=== PATIENT | male | born 1970 | race African-American/Black ===

== ENCOUNTER 2017-01-01 19:42 | Inpatient (IN) | payer OTHER ==
[2017-01-01 20:43] VITALS: BMI 38.0
--- NOTE | 2017-01-01 21:04 | HP ---
CIWA Score - CIWA Score Nausea/Vomitin-Mild Nausea/No Vomiting Muscle Tremors: 3 Anxiety: 4-Mod. Anxious/Guarded Agitation: 4-Moderately Restless Paroxysmal Sweats: No Perspiration Orientation: 0-Oriented Tacttile Disturbances: 0-None Auditory Disturbances: 1-Very Mild Visual Disturbances: 0-None Headache: 0-None Present CIWA-Ar Total Score: 13 Admission ROS BHS - HPI Chief Complaint: WITHDRAWAL SYMPTOMS Allergies/Adverse Reactions: Allergies Allergy/AdvReac Type Severity Reaction Status Date / Time tomato [Tomato] Allergy Mild Verified 03/13/13 20:38 No Known Drug Allergies Allergy Unknown Verified 03/16/13 16:55 PEACHES Allergy Mild Uncoded 03/13/13 20:39 History of Present Illness: 46 Y.O. MAN WITH AN 18 YEAR HISTORY OF ALCOHOL AND DRUG DEPENDENCE IS SEEKING DETOX. HE WAS PREVIOUSLY HERE IN 2012 FOR DETOX AND AT [facility] IN 2013. HE REPORT HAVING A 3 YEAR HISTORY OF SOBRIETY AND RELAPSED WITHIN THE LAST MONTH. Exam Limitations: No Limitations - Ebola screening Have you traveled outside of the country in the last 21 days: No Have you had contact with anyone from an Ebola affected area: No Have you been sick,other than usual withdrawal symptoms: No Do you have a fever: No - Review of Systems Constitutional: Malaise EENT: reports: No Symptoms Reported Respiratory: reports: No Symptoms reported Cardiac: reports: No Symptoms Reported GI: reports: No Symptoms Reported : reports: No Symptoms Reported Musculoskeletal: reports: No Symptoms Reported Integumentary: reports: No Symptoms Reported Neuro: reports: Tremors Endocrine: reports: No Symptoms Reported Hematology: reports: No Symptoms Reported Psychiatric: reports: Orientated x3, Depressed Other Systems: Reviewed and Negative Patient History - Patient Medical History Hx Anemia: No Hx Asthma: No Hx Chronic Obstructive Pulmonary Disease (COPD): No Hx Cancer: No Hx Cardiac Disorders: No Hx Congestive Heart Failure: No Hx Hypertension: No Hx Hypercholesterolemia: No Hx Pacemaker: No HX Cerebrovascular Accident: No Hx Seizures: No Hx Dementia: No Hx Diabetes: No Hx Gastrointestinal Disorders: No Hx Liver Disease: No Hx Genitourinary Disorders: No Hx Sexually Transmitted Disorders: No Hx Renal Disease (ESRD): No Hx Thyroid Disease: No Hx Human Immunodeficiency Virus (HIV): No Hx Hepatitis C: No Hx Depression: Yes Hx Suicide Attempt: No Hx Bipolar Disorder: Yes Hx Schizophrenia: No - Patient Surgical History Past Surgical History: No - PPD History Previous Implant?: Yes Documented Results: Negative w/proof Date: 03/15/13 Results: Negative PPD to be Administered?: Yes - Reproductive History Patient is a Female of Child Bearing Age (11 -55 yrs old): No - Smoking Cessation Smoking history: Former smoker Have you smoked in the past 12 months: No Initiated information on smoking cessation: No - Substance & Tx. History Hx Alcohol Use: Yes Hx Substance Use: Yes Substance Use Type: Alcohol, Cocaine, Marijuana - Substances Abused Alcohol Route: Oral Frequency: Daily Amount used: 2 PINTS OF LIQUOR Age of first use: 12 Date of Last Use: 01/01/17 Cocaine Route: Smoking Frequency: 3-6 times per week Amount used: $100 Age of first use: 18 Date of Last Use: 01/01/17 Marijuana/Hashish Route: Smoking Frequency: Daily Amount used: $40 Age of first use: 12 Date of Last Use: 01/01/17 Family Disease History - Family Disease History Family History: Denies Admission Physical Exam [facility] - Vital Signs Vital Signs: Vital Signs - 24 hr 01/01/17 20:36 Temperature 97.6 F Pulse Rate 77 Respiratory 18 Rate Blood Pressure 153/91 - Physical General Appearance: Yes: No Apparent Distress, Nourished, Appropriately Dressed HEENTM: Yes: Normocephalic, Normal Voice Respiratory: Yes: Chest Non-Tender, Lungs Clear, Normal Breath Sounds Neck: Yes: Trachea in good position Breast: Yes: Breast Exam Deferred Cardiology: Yes: Regular Rhythm, Regular Rate, S1, S2 Abdominal: Yes: Flat, Soft Genitourinary: Yes: Other (NO COMPLAINTS REPORTED) Back: Yes: Normal Inspection Musculoskeletal: Yes: full range of Motion, Gait Steady Extremities: Yes: Normal Range of Motion, Tremors 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: Yes: Alert, Normal Mood/Affect, Normal Response Integumentary: Yes: Normal Color, Dry, Warm Lymphatic: Yes: Within Normal Limits - Diagnostic (1) Cocaine dependence Current Visit: Yes Status: Chronic (2) Alcohol dependence with uncomplicated withdrawal Current Visit: Yes Status: Chronic (3) Cannabis dependence, uncomplicated Current Visit: Yes Status: Chronic (4) Obesity (BMI 30-39.9) Current Visit: Yes Status: Chronic Cleared for Admission [facility] - Detox or Rehab [facility] Level of Care: Medically Managed Detox Regimen/Protocol: Librium [facility] Breath Alcohol Content Breath Alcohol Content: 0 Urine Drug Screen - Results Drug Screen Negative: No Urine Drug Screen Results: MARTHA-Cocaine
[2017-01-01] MEDS ORDERED: chlordiazePOXIDE HCL 25 MG CAPSULE PO PRN (21:13)
[2017-01-01] MEDS ORDERED: MAGNESIUM CITRATE 300 ML BOTTLE PO PRN (21:13)
[2017-01-01] MEDS ORDERED: MAG HYDROX/AL HYDROX/SIMETH 30 ML UNIT-DOSE CUP PO PRN (21:13)
[2017-01-01] MEDS ORDERED: MENTHOL/PHENOL 1 EACH UD MM PRN (21:13)
[2017-01-01] MEDS ORDERED: ACETAMINOPHEN 325 MG TABLET (FP) PO PRN (21:13)
[2017-01-01] MEDS ORDERED: P-EPHED 60MG/TRIPROLIDI 2.5MG TABLET PO PRN (21:13)
[2017-01-01] MEDS ORDERED: LOPERAMIDE HCL 2 MG CAPSULE PO PRN (21:13)
[2017-01-01] MEDS ORDERED: chlordiazePOXIDE HCL 25 MG CAPSULE PO ONE (21:13)
[2017-01-01] MEDS ORDERED: hydrOXYzine PAMOATE 50 MG CAPSULE (FP) PO PRN (21:13)
[2017-01-01] MEDS ORDERED: IBUPROFEN 400 MG TABLET (FP) PO PRN (21:13)
[2017-01-01] MEDS ORDERED: guaiFENesin/D-METHORPHAN HB 10 ML UNIT-DOSE CUPS PO PRN (21:13)
[2017-01-01] MEDS ORDERED: MAGNESIUM HYDROX 2400MG/30ML ORAL SUSPENSION 30 ML CUP PO PRN (21:13)
[2017-01-01] MEDS: THIAMINE HCL 100 MG TABLET (FP) PO SCH (22:47)
[2017-01-01] MEDS: chlordiazePOXIDE HCL 25 MG CAPSULE PO SCH (22:48)
[2017-01-01] MEDS: diphenhydrAMINE HCL 50 MG CAPSULE PO PRN (22:48)
[2017-01-02] MEDS: chlordiazePOXIDE HCL 25 MG CAPSULE PO SCH ×4 (05:49→22:22)
[2017-01-02] MEDS ORDERED: PRENATAL VITAMINS W/ FOLIC ACID TABLET (FP) PO SCH (10:00)
[2017-01-02 10:55] LABS: MCH 29.1 pg (25.7-33.7); MCHC 33.7 g/dl (32.0-35.9); MEAN CELL VOLUME 86.4 fl (80-96); MEAN PLT VOLUME 7.5 fl (7.5-11.1); PLATELET COUNT 229 K/MM3 (134-434); RDW 15.8 % (11.9-15.9)
--- NOTE | 2017-01-02 10:56 | PN ---
S CIWA - CIWA Score Nausea/Vomitin-Mild Nausea/No Vomiting Muscle Tremors: 3 Anxiety: 4-Mod. Anxious/Guarded Agitation: 4-Moderately Restless Paroxysmal Sweats: 3 Orientation: 0-Oriented Tacttile Disturbances: 0-None Auditory Disturbances: 0-None Visual Disturbances: 0-None Headache: 0-None Present CIWA-Ar Total Score: 15 BHS Progress Note (SOAP) Subjective: Anxiety,tremors,sweating,interrupted sleep,restless Objective: 01/02/17 10:54 Vital Signs - 8 hr 01/02/17 01/02/17 01/02/17 03:59 06:41 10:17 Temperature 96.1 F L 95.4 F L Pulse Rate 79 74 Respiratory 20 20 18 Rate Blood Pressure 141/92 145/97 Assessment: 01/02/17 10:55 Withdrawal sx. Plan: Continue detox
[2017-01-02 11:05] LABS: ALBUMIN 3.3 g/dl (3.4-5.0); ALK PHOS 73 U/L (45-117); ANION GAP 9 (8-16); BILIRUBIN,TOTAL 0.8 mg/dL (0.2-1.0); CO2 29 mmol/L (21-32); COCKROFT - GAULT 123.37; CREATININE 1.2 mg/dL (0.7-1.3); GLUCOSE,RANDOM 111 mg/dL (74-106); SGOT/AST 31 U/L (15-37); SGPT/ALT 25 U/L (12-78); TOT PROT 6.4 g/dl (6.4-8.2)
--- NOTE | 2017-01-02 11:15 | CONSULT ---
[facility] Psychiatric Consult - Data Date of interview: 01/02/17 Admission source: [facility] Identifying data: This is 46 years old male with no psychiateric hospitalization history intoxicated with: Alcohol, Cannabis, Cocaine Substance Abuse History: - Smoking Cessation. Smoking history: Former smoker. Have you smoked in the past 12 months: No. Initiated information on smoking cessation: No. - Substance & Tx. History. Hx Alcohol Use: Yes. Hx Substance Use: Yes. Substance Use Type: Alcohol, Cocaine, Marijuana. - Substances Abused. Alcohol. Route: Oral. Frequency: Daily. Amount used: 2 PINTS OF LIQUOR. Age of first use: 12. Date of Last Use: 01/01/17. Cocaine. Route : Smoking. Frequency: 3-6 times per week. Amount used: $100. Age of first use : 18. Date of Last Use: 01/01/17. Marijuana/Hashish. Route: Smoking. Frequency: Daily. Amount used: $40. Age of first use: 12. Date of Last Use: 01/01/17 Medical History: Syncope history, Obesity Psychiatric History: Patient reports history of Depression and anxiety, as per computer there is a history of Bipolar Disorder. Patient reports taking prior to admission: Seroquel 250mg po qhs Physical/Sexual Abuse/Trauma History: Denies Additional Comment: Seroquel 250mg po qhs Mental Status Exam - Mental Status Exam Alert and Oriented to: Person Cognitive Function: Fair Patient Appearance: Well Groomed Mood: Apprehensive Affect: Mood Congruent Patient Behavior: Sedated, Cooperative Speech Pattern: Appropriate Voice Loudness: Normal Thought Process: Goal Oriented Thought Disorder: Being Controlled Hallucinations: Denies Suicidal Ideation: Denies Homicidal Ideation: Denies Insight/Judgement: Fair Sleep: Difficulty falling asleep Appetite: Weight gain Muscle strength/Tone: Normal Gait/Station: Shuffling Additional Comments: Seroquel 250mg po qhs Psychiatric Findings - Problem List ([place] 1, 2,3) (1) Alcohol dependence with uncomplicated withdrawal Current Visit: Yes Status: Chronic (2) Cannabis dependence, uncomplicated Current Visit: Yes Status: Chronic (3) Cocaine dependence Current Visit: Yes Status: Chronic (4) Obesity (BMI 30-39.9) Current Visit: Yes Status: Chronic (5) Alcohol dependence Current Visit: No Status: Active (6) Bipolar disorder Current Visit: No Status: Active - Initial Treatment Plan Initial Treatment Plan: Seroquel 250mg po qhs
--- NOTE | 2017-01-02 12:32 | EKG ---
Test Reason : Blood Pressure : / mmHG Vent. Rate : 078 BPM Atrial Rate : 078 BPM P-R Int : 136 ms QRS Dur : 106 ms QT Int : 356 ms P-R-T Axes : 052 036 044 degrees QTc Int : 405 ms NORMAL SINUS RHYTHM NONSPECIFIC T WAVE ABNORMALITY ABNORMAL ECG NO PREVIOUS ECGS AVAILABLE Confirmed by INGRIS FREEMAN MD ([id number]) on 01/02/2017 12:32:07 PM Referred By: Confirmed By:INGRIS FREEMAN MD
[2017-01-02] MEDS ORDERED: QUEtiapine FUMARATE 50 MG TABLET ONE (21:11)
[2017-01-02] MEDS ORDERED: QUEtiapine FUMARATE 200 MG TABLET ONE (21:11)
[2017-01-02] MEDS ORDERED: QUEtiapine FUMARATE 50 MG TABLET PO SCH (22:00)
[2017-01-02] MEDS ORDERED: QUETIAPINE FUMARATE 50 MG, QUETIAPINE FUMARATE 200 MG PO SCH (22:00)
[2017-01-02] MEDS: THIAMINE HCL 100 MG TABLET (FP) PO SCH (22:22)
[2017-01-02] MEDS: diphenhydrAMINE HCL 50 MG CAPSULE PO PRN (22:22)
[2017-01-02 22:58] LABS: URINE APPEARANCE CLEAR; URINE BILIRUBIN NEGATIVE (NEGATIVE); URINE BLOOD NEGATIVE (NEGATIVE); URINE COLOR STRAW; URINE GLUCOSE (UA) NEGATIVE (NEGATIVE); URINE KETONE NEGATIVE (NEGATIVE); URINE LEUK ESTERASE NEGATIVE (NEGATIVE); URINE NITRITE NEGATIVE (NEGATIVE); URINE PROTEIN NEGATIVE (NEGATIVE); URINE UROBILINOGEN NEGATIVE E.U./dl (0.2-1.0)
[2017-01-03] MEDS: chlordiazePOXIDE HCL 25 MG CAPSULE PO SCH (05:55)
[2017-01-03 06:38] VITALS: BP 138/89; PULSE 79; TEMP 96.7
--- NOTE | 2017-01-03 10:05 | DS ---
[facility] Detox Discharge Summary Admission Date: 01/01/17 Discharge Date: 01/03/17 - History Present History: Alcohol Dependence Additional Comments: PT DECLINED TO CONTINUE WITH DETOX. PT STATED " I GOTTA GO BACK TO WORK". ALERT O X 3. NAD. PT ENCOURAGED TO REMAIN SOBER AND SEEK AFTER CARE TX. Pertinent Past History: HX DEPRESSION OBESITY - Physical Exam Results Vital Signs: Vital Signs Temperature 96.7 F L 01/03/17 06:37 Pulse Rate 79 01/03/17 06:37 Respiratory Rate 18 01/03/17 06:37 Blood Pressure 138/89 01/03/17 06:37 O2 Sat by Pulse Oximetry (%) Pertinent Admission Physical Exam Findings: WITHDRAWAL SX Laboratory Last Values WBC 6.0 K/mm3 (4.0-10.0) D 01/02/17 07:00 RBC 4.75 M/mm3 (4.00-5.60) 01/02/17 07:00 Hgb 13.9 GM/dL (11.7-16.9) 01/02/17 07:00 Hct 41.1 % (35.4-49) 01/02/17 07:00 MCV 86.4 fl (80-96) 01/02/17 07:00 MCHC 33.7 g/dl (32.0-35.9) 01/02/17 07:00 RDW 15.8 % (11.9-15.9) 01/02/17 07:00 Plt Count 229 K/MM3 (134-434) 01/02/17 07:00 MPV 7.5 fl (7.5-11.1) 01/02/17 07:00 Sodium 143 mmol/L (136-145) 01/02/17 07:00 Potassium 3.6 mmol/L (3.5-5.1) 01/02/17 07:00 Chloride 105 mmol/L (98-107) 01/02/17 07:00 Carbon Dioxide 29 mmol/L (21-32) 01/02/17 07:00 Anion Gap 9 (8-16) 01/02/17 07:00 BUN 17 mg/dL (7-18) D 01/02/17 07:00 Creatinine 1.2 mg/dL (0.7-1.3) D 01/02/17 07:00 Creat Clearance w eGFR > 60 (>60) 01/02/17 07:00 Random Glucose 111 mg/dL (74-106) H 01/02/17 07:00 Calcium 8.0 mg/dL (8.5-10.1) L 01/02/17 07:00 Total Bilirubin 0.8 mg/dL (0.2-1.0) D 01/02/17 07:00 AST 31 U/L (15-37) D 01/02/17 07:00 ALT 25 U/L (12-78) D 01/02/17 07:00 Alkaline Phosphatase 73 U/L (45-117) 01/02/17 07:00 Total Protein 6.4 g/dl (6.4-8.2) 01/02/17 07:00 Albumin 3.3 g/dl (3.4-5.0) L 01/02/17 07:00 Urine Color Straw 01/02/17 16:00 Urine Appearance Clear 01/02/17 16:00 Urine pH 7.0 (5.0-8.0) 01/02/17 16:00 Ur Specific [place] 1.012 (1.001-1.035) 01/02/17 16:00 Urine Protein Negative (NEGATIVE) 01/02/17 16:00 Urine Glucose (UA) Negative (NEGATIVE) 01/02/17 16:00 Urine Ketones Negative (NEGATIVE) 01/02/17 16:00 Urine Blood Negative (NEGATIVE) 01/02/17 16:00 Urine Nitrite Negative (NEGATIVE) 01/02/17 16:00 Urine Bilirubin Negative (NEGATIVE) 01/02/17 16:00 Urine Urobilinogen Negative E.U./dl (0.2-1.0) 01/02/17 16:00 Ur Leukocyte Esterase Negative (NEGATIVE) 01/02/17 16:00 RPR Titer Nonreactive (NONREACTIVE) 01/02/17 07:00 - Treatment Hospital Course: Detox Protocol Followed, Detoxed Safely, Responded well, Discharged Condition Good - Medication Discharge Medications: Ambulatory Orders Quetiapine Fumarate [Seroquel] 250 mg PO HS 03/13/13 Quetiapine Fumarate [Seroquel] 250 mg PO HS #60 tablet 01/02/17 - Diagnosis (1) Alcohol dependence with uncomplicated withdrawal Status: Acute (2) Cannabis dependence, uncomplicated Status: Acute (3) Obesity (BMI 30-39.9) Status: Chronic (4) Bipolar disorder Status: Active - AMA Did Patient Leave Against Medical Advice: Yes (AMA)
[2017-01-03] MEDS ORDERED: chlordiazePOXIDE 5 MG CAPSULE PO SCH (23:00)
[2017-01-04] MEDS ORDERED: chlordiazePOXIDE HCL 10 MG CAPSULE PO SCH (23:00)
== END 2017-01-03 09:16 | disposition left against medical advice (07) | DRG 770 ==
LOC: YASAS 19:42 → Y3N 21:52
PROVIDERS: ADMIT Internal Medicine; ATTEND Internal Medicine
PROC: HZ2ZZZZ Detoxification Services for Substance Abuse Treatment (ICD-10-PCS; principal; 2017-01-03)
DX: F10.230 Alcohol dependence with withdrawal, uncomplicated (principal); F14.20 Cocaine dependence, uncomplicated; F12.20 Cannabis dependence, uncomplicated; F31.9 Bipolar disorder, unspecified; E66.09 Other obesity due to excess calories; Z68.30 Body mass index [BMI] 30.0-30.9, adult
CPT/HCPCS: 36415; 80053; 81003; 85027; 86593; 93005; 93010

== ENCOUNTER 2017-08-05 09:15 | Inpatient (IN) | payer OTHER ==
[2017-08-05 10:21] VITALS: BMI 35.1
--- NOTE | 2017-08-05 11:54 | HP ---
CIWA Score - CIWA Score Nausea/Vomitin-No Nausea/No Vomiting Muscle Tremors: 4-Moderate,w/Arms Extend Anxiety: 3 Agitation: 3 Paroxysmal Sweats: 3 Orientation: 0-Oriented Tacttile Disturbances: 0-None Auditory Disturbances: 0-None Visual Disturbances: 0-None Headache: 0-None Present CIWA-Ar Total Score: 13 Admission ROS S - HPI Chief Complaint: I am here for detox. Allergies/Adverse Reactions: Allergies Allergy/AdvReac Type Severity Reaction Status Date / Time banana Allergy Severe Hives Verified 08/05/17 10:54 tomato [Tomato] Allergy Severe Hives Verified 08/05/17 10:54 No Known Drug Allergies Allergy Verified 08/05/17 10:54 PEACHES Allergy Severe Hives Uncoded 08/05/17 10:54 History of Present Illness: pt is a 47yr old male with a history of alcohol dependence seeking detox for treatment. Exam Limitations: No Limitations - Ebola screening Have you traveled outside of the country in the last 21 days: No (N) Have you had contact with anyone from an Ebola affected area: No Have you been sick,other than usual withdrawal symptoms: No Do you have a fever: No - Review of Systems Constitutional: Loss of Appetite, Changes in sleep EENT: reports: No Symptoms Reported Respiratory: reports: No Symptoms reported Cardiac: reports: No Symptoms Reported GI: reports: Poor Appetite, Poor Fluid Intake : reports: No Symptoms Reported Musculoskeletal: reports: No Symptoms Reported Integumentary: reports: Flushing, Sweating Neuro: reports: Tingling, Tremors Endocrine: reports: Excessive Sweating, Flushing, Intolerance to Cold, Intolerance to Heat Hematology: reports: No Symptoms Reported Psychiatric: reports: Judgement Intact, Mood/Affect Appropiate, Orientated x3, Agitated, Anxious Other Systems: Reviewed and Negative Patient History - Patient Medical History Hx Anemia: No Hx Asthma: No Hx Chronic Obstructive Pulmonary Disease (COPD): No Hx Cancer: No Hx Cardiac Disorders: No Hx Congestive Heart Failure: No Hx Hypertension: No Hx Hypercholesterolemia: No Hx Pacemaker: No HX Cerebrovascular Accident: No Hx Seizures: No Hx Dementia: No Hx Diabetes: No Hx Gastrointestinal Disorders: No Hx Liver Disease: No Hx Genitourinary Disorders: No Hx Sexually Transmitted Disorders: No Hx Renal Disease (ESRD): No Hx Thyroid Disease: No Hx Human Immunodeficiency Virus (HIV): No (negative) Hx Hepatitis C: No (negative) Hx Depression: Yes Hx Suicide Attempt: No (denies) Hx Bipolar Disorder: Yes Hx Schizophrenia: No - Patient Surgical History Past Surgical History: No Hx Neurologic Surgery: No Hx Cataract Extraction: No Hx Cardiac Surgery: No Hx Lung Surgery: No Hx Breast Surgery: No Hx Breast Biopsy: No Hx Abdominal Surgery: No Hx Appendectomy: No Hx Cholecystectomy: No Hx Genitourinary Surgery: No Hx Section: No Hx Orthopedic Surgery: No - PPD History Previous Implant?: Yes Documented Results: Negative w/proof Implanted On Prior R Admission?: Yes Date: 01/03/17 Results: 0 mm PPD to be Administered?: No - Reproductive History Patient is a Female of Child Bearing Age (11 -55 yrs old): No - Smoking Cessation Smoking history: Current some day smoker Have you smoked in the past 12 months: Yes Aproximately how many cigarettes per day: 3 Hx Chewing Tobacco Use: No Initiated information on smoking cessation: Yes 'Breaking Loose' booklet given: 08/05/17 - Substance & Tx. History Hx Alcohol Use: Yes Hx Substance Use: Yes Substance Use Type: Alcohol, Cocaine Hx Substance Use Treatment: Yes (last detox 12/2016 [facility]) - Substances Abused Crack Route: Smoking Frequency: 1-2 times per week Amount used: $50 Age of first use: 18 Date of Last Use: 08/04/17 Alcohol-beer/vodka Route: Oral Frequency: Daily Amount used: 1-6 pk./1 pt. Age of first use: 12 Date of Last Use: 08/04/17 Family Disease History - Family Disease History Family History: Denies Admission Physical Exam S - Vital Signs Vital Signs: Vital Signs - 24 hr 08/05/17 10:19 Temperature 96.0 F L Pulse Rate 70 Respiratory 18 Rate Blood Pressure 146/76 - Physical General Appearance: Yes: Appropriately Dressed, Irritable, Sweating, Anxious HEENTM: Yes: Hearing grossly Normal, Normal Voice Respiratory: Yes: Lungs Clear, Normal Breath Sounds, No Respiratory Distress Neck: Yes: No masses,lesions,Nodules Breast: Yes: Within Normal Limits Cardiology: Yes: Regular Rhythm, Regular Rate, S1, S2 Abdominal: Yes: Normal Bowel Sounds, Non Tender, Flat Genitourinary: Yes: Within Normal Limits Back: Yes: Normal Inspection Musculoskeletal: Yes: full range of Motion, Back pain Extremities: Yes: Normal Capillary Refill, Normal Inspection, Tremors 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: Yes: Fully Oriented, Alert, Normal Response Integumentary: Yes: Normal Color, Diaphoresis Lymphatic: Yes: Within Normal Limits - Diagnostic (1) Alcohol dependence with uncomplicated withdrawal Current Visit: Yes Status: Chronic (2) Cannabis dependence, uncomplicated Current Visit: Yes Status: Chronic (3) Nicotine dependence Current Visit: Yes Status: Chronic Qualifiers: Nicotine product type: cigarettes Substance use status: uncomplicated Qualified Code(s): F17.210 - Nicotine dependence, cigarettes, uncomplicated Cleared for Admission [facility] - Detox or Rehab [facility] Level of Care: Medically Managed Detox Regimen/Protocol: Librium [facility] Breath Alcohol Content Breath Alcohol Content: 0 Urine Drug Screen - Results Drug Screen Negative: No Urine Drug Screen Results: MARTHA-Cocaine
[2017-08-05] MEDS ORDERED: MAG HYDROX/AL HYDROX/SIMETH 30 ML UNIT-DOSE CUP PO PRN (11:57)
[2017-08-05] MEDS ORDERED: chlordiazePOXIDE HCL 25 MG CAPSULE PO ONE (11:57)
[2017-08-05] MEDS ORDERED: MAGNESIUM HYDROX 2400MG/30ML ORAL SUSPENSION 30 ML CUP PO PRN (11:57)
[2017-08-05] MEDS ORDERED: ACETAMINOPHEN 325 MG TABLET (FP) PO PRN (11:57)
[2017-08-05] MEDS ORDERED: chlordiazePOXIDE HCL 25 MG CAPSULE PO PRN (11:57)
[2017-08-05] MEDS ORDERED: hydrOXYzine PAMOATE 50 MG CAPSULE (FP) PO PRN (11:57)
[2017-08-05] MEDS ORDERED: guaiFENesin/D-METHORPHAN HB 10 ML UNIT-DOSE CUPS PO PRN (11:57)
[2017-08-05] MEDS ORDERED: LOPERAMIDE HCL 2 MG CAPSULE PO PRN (11:57)
[2017-08-05] MEDS ORDERED: MAGNESIUM CITRATE 300 ML BOTTLE PO PRN (11:57)
[2017-08-05] MEDS ORDERED: NICOTINE POLACRILEX 2 MG GUM BUC PRN (11:57)
[2017-08-05] MEDS ORDERED: MENTHOL/PHENOL 1 EACH UD MM PRN (11:57)
[2017-08-05] MEDS ORDERED: IBUPROFEN 400 MG TABLET (FP) PO PRN (11:57)
[2017-08-05] MEDS ORDERED: P-EPHED 60MG/TRIPROLIDI 2.5MG TABLET PO PRN (11:57)
[2017-08-05] MEDS: chlordiazePOXIDE HCL 25 MG CAPSULE PO SCH ×2 (17:15→22:21)
[2017-08-05 18:06] LABS: URINE APPEARANCE CLEAR; URINE BILIRUBIN NEGATIVE (NEGATIVE); URINE BLOOD NEGATIVE (NEGATIVE); URINE COLOR YELLOW; URINE GLUCOSE (UA) NEGATIVE (NEGATIVE); URINE KETONE 1+ (NEGATIVE); URINE NITRITE NEGATIVE (NEGATIVE); URINE PROTEIN NEGATIVE (NEGATIVE); URINE UROBILINOGEN NEGATIVE mg/dL (0.2-1.0)
[2017-08-05 22:03] LABS: URINE LEUK ESTERASE Negative (NEGATIVE)
[2017-08-05] MEDS: QUEtiapine FUMARATE 200 MG TABLET PO SCH (22:21)
[2017-08-05] MEDS: THIAMINE HCL 100 MG TABLET (FP) PO SCH (22:21)
[2017-08-06] MEDS: chlordiazePOXIDE HCL 25 MG CAPSULE PO SCH ×4 (05:39→22:07)
--- NOTE | 2017-08-06 07:33 | CONSULT ---
[facility] Psychiatric Consult - Data Date of interview: 08/06/17 Admission source: [facility] Identifying data: This is 47 years olf male with no psychiatric hospitalization history intoxicated with: Alcohol, Cannabis, Crack, Nicotine Substance Abuse History: - Smoking Cessation. Smoking history: Current some day smoker. Have you smoked in the past 12 months: Yes. Aproximately how many cigarettes per day: 3. Hx Chewing Tobacco Use: No. Initiated information on smoking cessation: Yes. 'Breaking Loose' booklet given: 08/05/17. - Substance & Tx. History. Hx Alcohol Use: Yes. Hx Substance Use: Yes. Substance Use Type : Alcohol, Cocaine. Hx Substance Use Treatment: Yes (last detox 12/2016 [facility] ). - Substances Abused. Crack. Route: Smoking. Frequency: 1-2 times per week. Amount used: $50. Age of first use: 18. Date of Last Use: 08/04/17. * * Alcohol-beer/vodka. Route: Oral. Frequency: Daily. Amount used: 1-6 pk./1 pt. Age of first use: 12. Date of Last Use: 08/04/17 Medical History: Denies Psychiatric History: Patient reports history of depression and anxiety, reports taking prior to admission: Seroquel 200mg po qhs Physical/Sexual Abuse/Trauma History: Denies Additional Comment: Seroquel 200mg po qhs Mental Status Exam - Mental Status Exam Alert and Oriented to: Time Cognitive Function: Fair Patient Appearance: Unkempt Affect: Normal Range, Flat Patient Behavior: Sedated Speech Pattern: Delayed Voice Loudness: Mildly Soft/Quiet Thought Process: Circumstantial Thought Disorder: Being Controlled Hallucinations: Denies Suicidal Ideation: Denies Homicidal Ideation: Denies Insight/Judgement: Fair Sleep: Difficulty falling asleep Appetite: Fair Muscle strength/Tone: Normal Gait/Station: Normal Additional Comments: Seroquel 200mg po qhs Psychiatric Findings - Problem List ([place] 1, 2,3) (1) Drug-induced mood disorder Current Visit: Yes Status: Acute (2) Alcohol dependence with uncomplicated withdrawal Current Visit: Yes Status: Chronic (3) Cannabis dependence, uncomplicated Current Visit: Yes Status: Chronic (4) Nicotine dependence Current Visit: Yes Status: Chronic Qualifiers: Nicotine product type: cigarettes Substance use status: uncomplicated Qualified Code(s): F17.210 - Nicotine dependence, cigarettes, uncomplicated (5) Bipolar disorder Current Visit: No Status: Suspected - Initial Treatment Plan Initial Treatment Plan: Seroquel 200mg po qhs
--- NOTE | 2017-08-06 09:21 | PN ---
S CIWA - CIWA Score Nausea/Vomitin Muscle Tremors: 3 Anxiety: 3 Agitation: 3 Paroxysmal Sweats: 3 Orientation: 0-Oriented Tacttile Disturbances: 1-Very Mild Itch/Numbness Auditory Disturbances: 0-None Visual Disturbances: 0-None Headache: 1-Very Mild CIWA-Ar Total Score: 17 S Progress Note (SOAP) Subjective: nausea, sweats, interrupted sleep, anxiety, tremors Objective: 08/06/17 09:20 Vital Signs - 8 hr 08/06/17 08/06/17 03:30 06:29 Temperature 97.5 F L Pulse Rate 64 Respiratory 18 16 Rate Blood Pressure 119/64 Laboratory Tests 08/05/17 15:30 Urine Color Yellow Urine Appearance Clear Urine pH 5.0 D Ur Specific [place] 1.016 Urine Protein Negative Urine Glucose (UA) Negative Urine Ketones 1+ H Urine Blood Negative Urine Nitrite Negative Urine Bilirubin Negative Urine Urobilinogen Negative Ur Leukocyte Esterase Negative labs still pending Assessment: 08/06/17 09:21 withdrawal sx, cont detox, fluids, encoruage ambulation
--- NOTE | 2017-08-06 09:42 | EKG ---
Test Reason : Blood Pressure : / mmHG Vent. Rate : 065 BPM Atrial Rate : 065 BPM P-R Int : 136 ms QRS Dur : 094 ms QT Int : 390 ms P-R-T Axes : 059 038 034 degrees QTc Int : 405 ms NORMAL SINUS RHYTHM NORMAL ECG WHEN COMPARED WITH ECG OF 01-JAN-2017 21:57, NO SIGNIFICANT CHANGE WAS FOUND Confirmed by KP SIEGEL MD ([id number]) on 08/06/2017 9:42:31 AM Referred By: Confirmed By:KP SIEGEL MD
[2017-08-06 10:02] LABS: MCH 28.6 pg (25.7-33.7); MCHC 32.9 g/dl (32.0-35.9); MEAN CELL VOLUME 86.9 fl (80-96); MEAN PLT VOLUME 7.6 fl (7.5-11.1); PLATELET COUNT 301 K/MM3 (134-434); RDW 15.4 % (11.9-15.9); WHITE BLOOD COUNT 6.6 K/mm3 (4.0-10.0)
[2017-08-06] MEDS: PRENATAL VITAMINS W/ FOLIC ACID TABLET (FP) PO SCH (10:11)
[2017-08-06 10:18] LABS: ALBUMIN 3.8 g/dl (3.4-5.0); ALK PHOS 72 U/L (45-117); ANION GAP 5 (8-16); BILIRUBIN,TOTAL 1.1 mg/dL (0.2-1.0); CALCIUM 8.5 mg/dL (8.5-10.1); CO2 30 mmol/L (21-32); CREATININE 1.1 mg/dL (0.7-1.3); GLUCOSE,RANDOM 103 mg/dL (74-106); SGOT/AST 24 U/L (15-37); SGPT/ALT 37 U/L (12-78); TOT PROT 6.9 g/dl (6.4-8.2)
[2017-08-06] MEDS: QUEtiapine FUMARATE 200 MG TABLET PO SCH (22:06)
[2017-08-06] MEDS: THIAMINE HCL 100 MG TABLET (FP) PO SCH (22:06)
[2017-08-07] MEDS: chlordiazePOXIDE HCL 25 MG CAPSULE PO SCH ×2 (05:41→10:45)
[2017-08-07] MEDS: PRENATAL VITAMINS W/ FOLIC ACID TABLET (FP) PO SCH (10:45)
--- NOTE | 2017-08-07 12:31 | PN ---
S CIWA - CIWA Score Nausea/Vomitin-No Nausea/No Vomiting Muscle Tremors: 4-Moderate,w/Arms Extend Anxiety: 3 Agitation: 4-Moderately Restless Paroxysmal Sweats: 3 Orientation: 0-Oriented Tacttile Disturbances: 0-None Auditory Disturbances: 0-None Visual Disturbances: 0-None Headache: 0-None Present CIWA-Ar Total Score: 14 BHS Progress Note (SOAP) Subjective: sweats irritable agitation Objective: 08/07/17 12:30 Vital Signs Temperature 97.9 F 08/07/17 09:53 Pulse Rate 75 08/07/17 09:53 Respiratory Rate 18 08/07/17 09:53 Blood Pressure 137/92 08/07/17 09:53 O2 Sat by Pulse Oximetry (%) Laboratory Tests 08/05/17 08/06/17 08/06/17 15:30 05:30 05:30 WBC 6.6 RBC 4.80 Hgb 13.7 Hct 41.7 MCV 86.9 MCH 28.6 MCHC 32.9 RDW 15.4 Plt Count 301 D MPV 7.6 Sodium 142 Potassium 3.5 Chloride 107 Carbon Dioxide 30 Anion Gap 5 L BUN 14 Creatinine 1.1 Creat Clearance w eGFR > 60 Random Glucose 103 Calcium 8.5 Total Bilirubin 1.1 H D AST 24 D ALT 37 D Alkaline Phosphatase 72 Total Protein 6.9 Albumin 3.8 Urine Color Yellow Urine Appearance Clear Urine pH 5.0 D Ur Specific [place] 1.016 Urine Protein Negative Urine Glucose (UA) Negative Urine Ketones 1+ H Urine Blood Negative Urine Nitrite Negative Urine Bilirubin Negative Urine Urobilinogen Negative Ur Leukocyte Esterase Negative RPR Titer 08/06/17 05:30 WBC RBC Hgb Hct MCV MCH MCHC RDW Plt Count MPV Sodium Potassium Chloride Carbon Dioxide Anion Gap BUN Creatinine Creat Clearance w eGFR Random Glucose Calcium Total Bilirubin AST ALT Alkaline Phosphatase Total Protein Albumin Urine Color Urine Appearance Urine pH Ur Specific [place] Urine Protein Urine Glucose (UA) Urine Ketones Urine Blood Urine Nitrite Urine Bilirubin Urine Urobilinogen Ur Leukocyte Esterase RPR Titer Nonreactive aaox3 ambulating no acute distress Assessment: 08/07/17 12:31 withdrawal sx Plan: continue detox increase fluids
[2017-08-07] MEDS: chlordiazePOXIDE 5 MG CAPSULE PO SCH ×2 (17:33→22:05)
[2017-08-07] MEDS: QUEtiapine FUMARATE 200 MG TABLET PO SCH (22:05)
[2017-08-07] MEDS: THIAMINE HCL 100 MG TABLET (FP) PO SCH (22:05)
[2017-08-08] MEDS: chlordiazePOXIDE 5 MG CAPSULE PO SCH ×2 (07:04→10:26)
--- NOTE | 2017-08-08 09:55 | PN ---
BHS Progress Note (SOAP) Subjective: headache irritable Objective: 08/08/17 09:54 Vital Signs Temperature 97.9 F 08/08/17 06:19 Pulse Rate 74 08/08/17 06:19 Respiratory Rate 18 08/08/17 06:19 Blood Pressure 137/63 08/08/17 06:19 O2 Sat by Pulse Oximetry (%) aaox3 ambulating no acute distress Assessment: 08/08/17 09:55 mild withdrawal sx Plan: continue detox increase fluids tylenol or motrin prn d/c in am
[2017-08-08] MEDS: PRENATAL VITAMINS W/ FOLIC ACID TABLET (FP) PO SCH (10:26)
[2017-08-08] MEDS: chlordiazePOXIDE HCL 10 MG CAPSULE PO SCH ×2 (17:39→22:00)
[2017-08-08] MEDS: THIAMINE HCL 100 MG TABLET (FP) PO SCH (22:00)
[2017-08-08] MEDS: QUEtiapine FUMARATE 200 MG TABLET PO SCH (22:00)
[2017-08-09] MEDS: chlordiazePOXIDE HCL 10 MG CAPSULE PO SCH ×2 (06:05→10:18)
--- NOTE | 2017-08-09 08:35 | PN ---
S Progress Note (SOAP) Subjective: alert,irritable,anxious,interrupted sleep Objective: 08/09/17 08:33 Vital Signs Temperature 97.5 F L 08/09/17 06:13 Pulse Rate 64 08/09/17 06:13 Respiratory Rate 16 08/09/17 06:13 Blood Pressure 118/58 08/09/17 06:13 O2 Sat by Pulse Oximetry (%) Assessment: 08/09/17 08:33 withdrawal symptom Plan: continue detox,discharge in am
[2017-08-09] MEDS: PRENATAL VITAMINS W/ FOLIC ACID TABLET (FP) PO SCH (10:18)
[2017-08-09] MEDS: THIAMINE HCL 100 MG TABLET (FP) PO SCH (22:09)
[2017-08-09] MEDS: QUEtiapine FUMARATE 200 MG TABLET PO SCH (22:09)
--- NOTE | 2017-08-10 08:12 | DS ---
[facility] Detox Discharge Summary Admission Date: 08/05/17 Discharge Date: 08/10/17 - History Present History: Alcohol Dependence, Cannabis Dependence Additional Comments: follow up with after care program as arrangement Pertinent Past History: nicotine dependence syncope bipolar disorder - Physical Exam Results Vital Signs: Vital Signs Temperature 98 F 08/10/17 06:10 Pulse Rate 67 08/10/17 06:10 Respiratory Rate 16 08/10/17 06:10 Blood Pressure 112/50 08/10/17 06:10 O2 Sat by Pulse Oximetry (%) Pertinent Admission Physical Exam Findings: withdrawal symptom - Treatment Hospital Course: Detox Protocol Followed, Detoxed Safely, Responded well, Discharged Condition Good Patient has Accepted a Rehab Referral to: declined - Medication Discharge Medications: Ambulatory Orders Quetiapine Fumarate [Seroquel] 200 mg PO HS 03/13/13 - Diagnosis (1) Alcohol dependence with uncomplicated withdrawal Current Visit: Yes Status: Chronic (2) Drug-induced mood disorder Current Visit: Yes Status: Acute (3) Cannabis dependence, uncomplicated Current Visit: Yes Status: Chronic (4) Nicotine dependence Current Visit: Yes Status: Chronic Qualifiers: Nicotine product type: cigarettes Substance use status: uncomplicated Qualified Code(s): F17.210 - Nicotine dependence, cigarettes, uncomplicated (5) Syncope Current Visit: No Status: Active (6) Bipolar disorder Current Visit: No Status: Suspected - AMA Did Patient Leave Against Medical Advice: No
[2017-08-10 09:44] VITALS: BP 151/90; PULSE 73; TEMP 96.6
[2017-08-10] MEDS: PRENATAL VITAMINS W/ FOLIC ACID TABLET (FP) PO SCH (09:57)
== END 2017-08-10 09:01 | disposition home or self-care (01) | DRG 775 ==
LOC: YASAS 09:15 → Y6N 11:55
PROVIDERS: ADMIT Internal Medicine; ATTEND Internal Medicine
PROC: HZ2ZZZZ Detoxification Services for Substance Abuse Treatment (ICD-10-PCS; principal; 2017-08-05)
DX: F10.230 Alcohol dependence with withdrawal, uncomplicated (principal); F12.20 Cannabis dependence, uncomplicated; F17.210 Nicotine dependence, cigarettes, uncomplicated; F19.24 Other psychoactive substance dependence with psychoactive substance-induced mood disorder; F31.9 Bipolar disorder, unspecified; R55 Syncope and collapse
CPT/HCPCS: 36415; 80053; 81003; 85027; 86593; 93005; 93010

== ENCOUNTER 2017-12-23 13:00 | Inpatient (IN) | payer OTHER ==
[2017-12-23 16:10] VITALS: BMI 34.9
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
[2017-12-23] MEDS ORDERED: ACETAMINOPHEN 325 MG TABLET (FP) PO PRN (19:48)
[2017-12-23] MEDS ORDERED: IBUPROFEN 400 MG TABLET (FP) PO PRN (19:48)
[2017-12-23] MEDS ORDERED: MAGNESIUM CITRATE 300 ML BOTTLE PO PRN (19:48)
[2017-12-23] MEDS ORDERED: P-EPHED 60MG/TRIPROLIDI 2.5MG TABLET PO PRN (19:48)
[2017-12-23] MEDS ORDERED: guaiFENesin/D-METHORPHAN HB 10 ML UNIT-DOSE CUPS PO PRN (19:48)
[2017-12-23] MEDS ORDERED: hydrOXYzine PAMOATE 50 MG CAPSULE (FP) PO PRN (19:48)
[2017-12-23] MEDS ORDERED: LOPERAMIDE HCL 2 MG CAPSULE PO PRN (19:48)
[2017-12-23] MEDS ORDERED: MENTHOL/PHENOL 1 EACH UD MM PRN (19:48)
[2017-12-23] MEDS ORDERED: MAGNESIUM HYDROX 2400MG/30ML ORAL SUSPENSION 30 ML CUP PO PRN (19:48)
[2017-12-23] MEDS ORDERED: MAG HYDROX/AL HYDROX/SIMETH 30 ML UNIT-DOSE CUP PO PRN (19:48)
[2017-12-23] MEDS ORDERED: TUBERCULIN PPD 5 TU/0.1ML VIAL ID ONE (20:35)
[2017-12-23] MEDS: amLODIPine BESYLATE 10 MG TABLET (FP) PO SCH (20:40)
--- NOTE | 2017-12-23 21:05 | PN ---
[facility] Progress Note Note: Called by nursing staff to order medication for newly patient admitted from [facility] this evening. Medication reconciliation done(Seroquel 200 mg po HS)
[2017-12-23] MEDS: THIAMINE HCL 100 MG TABLET (FP) PO SCH (21:14)
[2017-12-23] MEDS: QUEtiapine FUMARATE 200 MG TABLET PO SCH (21:14)
[2017-12-23] MEDS ORDERED: MELATONIN 5 MG TABLETS PO PRN (22:00)
[2017-12-24 08:51] LABS: URINE APPEARANCE CLEAR; URINE BILIRUBIN NEGATIVE (<2.0 mg/dL); URINE COLOR LTYELLOW; URINE GLUCOSE (UA) NEGATIVE (NEGATIVE); URINE KETONE NEGATIVE (NEGATIVE); URINE LEUK ESTERASE NEGATIVE (NEGATIVE); URINE NITRITE NEGATIVE (NEGATIVE); URINE PROTEIN NEGATIVE (NEGATIVE); URINE UROBILINOGEN NEGATIVE mg/dL (0.2-1.0)
[2017-12-24] MEDS: amLODIPine BESYLATE 10 MG TABLET (FP) PO SCH (09:40)
[2017-12-24] MEDS: PRENATAL VITAMINS W/ FOLIC ACID TABLET (FP) PO SCH (09:40)
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
--- NOTE | 2017-12-24 10:54 | EKG ---
Test Reason : Blood Pressure : / mmHG Vent. Rate : 072 BPM Atrial Rate : 072 BPM P-R Int : 138 ms QRS Dur : 106 ms QT Int : 360 ms P-R-T Axes : 049 032 054 degrees QTc Int : 394 ms NORMAL SINUS RHYTHM NONSPECIFIC T WAVE ABNORMALITY ABNORMAL ECG WHEN COMPARED WITH ECG OF 05-AUG-2017 13:02, NO SIGNIFICANT CHANGE WAS FOUND Confirmed by KP SIEGEL MD ([id number]) on 12/24/2017 10:53:33 AM Referred By: Confirmed By:KP SIEGEL MD
[2017-12-24 10:55] LABS: HEMATOCRIT 39.4 % (35.4-49); HEMOGLOBIN 13.3 GM/dL (11.7-16.9); MCH 29.5 pg (25.7-33.7); MCHC 33.8 g/dl (32.0-35.9); MEAN CELL VOLUME 87.4 fl (80-96); MEAN PLT VOLUME 7.4 fl (7.5-11.1); PLATELET COUNT 292 K/MM3 (134-434); RBC 4.51 M/mm3 (4.00-5.60); RDW 15.9 % (11.9-15.9); WHITE BLOOD COUNT 5.1 K/mm3 (4.0-10.0)
[2017-12-24 11:37] LABS: ALBUMIN 3.1 g/dl (3.4-5.0); ALK PHOS 95 U/L (45-117); ANION GAP 6 (8-16); BILIRUBIN,TOTAL 0.2 mg/dL (0.2-1.0); BLOOD UREA NITROGEN 14 mg/dL (7-18); CALCIUM 8.5 mg/dL (8.5-10.1); CHLORIDE 109 mmol/L (98-107); CO2 30 mmol/L (21-32); GLUCOSE,RANDOM 94 mg/dL (74-106); POTASSIUM 4.4 mmol/L (3.5-5.1); SGOT/AST 36 U/L (15-37); SGPT/ALT 44 U/L (12-78); SODIUM 145 mmol/L (136-145); TOT PROT 5.9 g/dl (6.4-8.2)
[2017-12-24] MEDS: THIAMINE HCL 100 MG TABLET (FP) PO SCH (21:19)
[2017-12-24] MEDS: QUEtiapine FUMARATE 200 MG TABLET PO SCH (21:19)
[2017-12-25] MEDS: PRENATAL VITAMINS W/ FOLIC ACID TABLET (FP) PO SCH (09:46)
[2017-12-25] MEDS: amLODIPine BESYLATE 10 MG TABLET (FP) PO SCH (09:48)
[2017-12-25] MEDS: QUEtiapine FUMARATE 200 MG TABLET PO SCH (21:38)
[2017-12-25] MEDS: THIAMINE HCL 100 MG TABLET (FP) PO SCH (21:38)
[2017-12-26] MEDS: PRENATAL VITAMINS W/ FOLIC ACID TABLET (FP) PO SCH (10:01)
[2017-12-26] MEDS: amLODIPine BESYLATE 10 MG TABLET (FP) PO SCH (10:01)
[2017-12-26] MEDS: QUEtiapine FUMARATE 200 MG TABLET PO SCH (21:16)
[2017-12-26] MEDS: THIAMINE HCL 100 MG TABLET (FP) PO SCH (21:16)
[2017-12-27] MEDS: PRENATAL VITAMINS W/ FOLIC ACID TABLET (FP) PO SCH (09:33)
[2017-12-27] MEDS: amLODIPine BESYLATE 10 MG TABLET (FP) PO SCH (09:33)
[2017-12-27] MEDS: THIAMINE HCL 100 MG TABLET (FP) PO SCH (21:08)
[2017-12-27] MEDS: QUEtiapine FUMARATE 200 MG TABLET PO SCH (21:08)
[2017-12-28] MEDS: amLODIPine BESYLATE 10 MG TABLET (FP) PO SCH (09:41)
[2017-12-28] MEDS: PRENATAL VITAMINS W/ FOLIC ACID TABLET (FP) PO SCH (09:41)
[2017-12-28] MEDS: THIAMINE HCL 100 MG TABLET (FP) PO SCH (21:12)
[2017-12-28] MEDS: QUEtiapine FUMARATE 200 MG TABLET PO SCH (21:12)
[2017-12-29] MEDS: PRENATAL VITAMINS W/ FOLIC ACID TABLET (FP) PO SCH (10:27)
[2017-12-29] MEDS: amLODIPine BESYLATE 10 MG TABLET (FP) PO SCH (10:27)
[2017-12-29] MEDS: QUEtiapine FUMARATE 200 MG TABLET PO SCH (21:30)
[2017-12-29] MEDS: THIAMINE HCL 100 MG TABLET (FP) PO SCH (21:30)
[2017-12-30] MEDS: amLODIPine BESYLATE 10 MG TABLET (FP) PO SCH (09:40)
[2017-12-30] MEDS: PRENATAL VITAMINS W/ FOLIC ACID TABLET (FP) PO SCH (09:40)
[2017-12-30] MEDS: THIAMINE HCL 100 MG TABLET (FP) PO SCH (21:18)
[2017-12-30] MEDS: QUEtiapine FUMARATE 200 MG TABLET PO SCH (21:18)
[2017-12-31] MEDS: amLODIPine BESYLATE 10 MG TABLET (FP) PO SCH (09:48)
[2017-12-31] MEDS: PRENATAL VITAMINS W/ FOLIC ACID TABLET (FP) PO SCH (09:48)
[2017-12-31] MEDS ORDERED: COLLOIDAL OATMEAL 1 BAR EACH TP PRN (14:19)
[2017-12-31] MEDS: THIAMINE HCL 100 MG TABLET (FP) PO SCH (21:15)
[2017-12-31] MEDS: QUEtiapine FUMARATE 200 MG TABLET PO SCH (21:15)
[2018-01-01] MEDS: amLODIPine BESYLATE 10 MG TABLET (FP) PO SCH (10:05)
[2018-01-01] MEDS: PRENATAL VITAMINS W/ FOLIC ACID TABLET (FP) PO SCH (10:05)
[2018-01-01] MEDS: THIAMINE HCL 100 MG TABLET (FP) PO SCH (21:46)
[2018-01-01] MEDS: QUEtiapine FUMARATE 200 MG TABLET PO SCH (21:46)
[2018-01-02] MEDS: amLODIPine BESYLATE 10 MG TABLET (FP) PO SCH (09:42)
[2018-01-02] MEDS: PRENATAL VITAMINS W/ FOLIC ACID TABLET (FP) PO SCH (09:42)
[2018-01-02] MEDS: THIAMINE HCL 100 MG TABLET (FP) PO SCH (21:28)
[2018-01-02] MEDS: QUEtiapine FUMARATE 200 MG TABLET PO SCH (21:28)
[2018-01-03] MEDS: PRENATAL VITAMINS W/ FOLIC ACID TABLET (FP) PO SCH (09:49)
[2018-01-03] MEDS: amLODIPine BESYLATE 10 MG TABLET (FP) PO SCH (09:49)
[2018-01-03] MEDS: QUEtiapine FUMARATE 200 MG TABLET PO SCH (21:19)
[2018-01-03] MEDS: THIAMINE HCL 100 MG TABLET (FP) PO SCH (21:19)
[2018-01-04] MEDS: amLODIPine BESYLATE 10 MG TABLET (FP) PO SCH (09:41)
[2018-01-04] MEDS: PRENATAL VITAMINS W/ FOLIC ACID TABLET (FP) PO SCH (09:41)
[2018-01-04] MEDS: THIAMINE HCL 100 MG TABLET (FP) PO SCH (21:17)
[2018-01-04] MEDS: QUEtiapine FUMARATE 200 MG TABLET PO SCH (21:17)
[2018-01-05] MEDS: PRENATAL VITAMINS W/ FOLIC ACID TABLET (FP) PO SCH (09:35)
[2018-01-05] MEDS: amLODIPine BESYLATE 10 MG TABLET (FP) PO SCH (09:35)
[2018-01-05] MEDS: QUEtiapine FUMARATE 200 MG TABLET PO SCH (21:28)
[2018-01-05] MEDS: THIAMINE HCL 100 MG TABLET (FP) PO SCH (21:28)
[2018-01-06] MEDS: PRENATAL VITAMINS W/ FOLIC ACID TABLET (FP) PO SCH (10:10)
[2018-01-06] MEDS: amLODIPine BESYLATE 10 MG TABLET (FP) PO SCH (10:10)
[2018-01-06] MEDS: QUEtiapine FUMARATE 200 MG TABLET PO SCH (21:18)
[2018-01-06] MEDS: THIAMINE HCL 100 MG TABLET (FP) PO SCH (21:18)
[2018-01-07] MEDS: PRENATAL VITAMINS W/ FOLIC ACID TABLET (FP) PO SCH (09:43)
[2018-01-07] MEDS: amLODIPine BESYLATE 10 MG TABLET (FP) PO SCH (09:43)
[2018-01-07] MEDS: THIAMINE HCL 100 MG TABLET (FP) PO SCH (21:27)
[2018-01-07] MEDS: QUEtiapine FUMARATE 200 MG TABLET PO SCH (21:27)
[2018-01-08] MEDS: amLODIPine BESYLATE 10 MG TABLET (FP) PO SCH (09:43)
[2018-01-08] MEDS: PRENATAL VITAMINS W/ FOLIC ACID TABLET (FP) PO SCH (09:43)
[2018-01-08] MEDS: THIAMINE HCL 100 MG TABLET (FP) PO SCH (21:20)
[2018-01-08] MEDS: QUEtiapine FUMARATE 200 MG TABLET PO SCH (21:20)
[2018-01-09] MEDS: amLODIPine BESYLATE 10 MG TABLET (FP) PO SCH (09:54)
[2018-01-09] MEDS: PRENATAL VITAMINS W/ FOLIC ACID TABLET (FP) PO SCH (09:54)
[2018-01-09] MEDS: THIAMINE HCL 100 MG TABLET (FP) PO SCH (21:17)
[2018-01-09] MEDS: QUEtiapine FUMARATE 200 MG TABLET PO SCH (21:17)
[2018-01-10] MEDS: PRENATAL VITAMINS W/ FOLIC ACID TABLET (FP) PO SCH (09:51)
[2018-01-10] MEDS: amLODIPine BESYLATE 10 MG TABLET (FP) PO SCH (09:51)
[2018-01-10] MEDS: THIAMINE HCL 100 MG TABLET (FP) PO SCH (21:22)
[2018-01-10] MEDS: QUEtiapine FUMARATE 200 MG TABLET PO SCH (21:22)
[2018-01-11] MEDS: amLODIPine BESYLATE 10 MG TABLET (FP) PO SCH (09:44)
[2018-01-11] MEDS: PRENATAL VITAMINS W/ FOLIC ACID TABLET (FP) PO SCH (09:44)
[2018-01-11] MEDS: QUEtiapine FUMARATE 200 MG TABLET PO SCH (21:09)
[2018-01-11] MEDS: THIAMINE HCL 100 MG TABLET (FP) PO SCH (21:09)
[2018-01-12] MEDS: PRENATAL VITAMINS W/ FOLIC ACID TABLET (FP) PO SCH (09:49)
[2018-01-12] MEDS: amLODIPine BESYLATE 10 MG TABLET (FP) PO SCH (09:49)
[2018-01-12] MEDS: THIAMINE HCL 100 MG TABLET (FP) PO SCH (21:17)
[2018-01-12] MEDS: QUEtiapine FUMARATE 200 MG TABLET PO SCH (21:17)
[2018-01-13] MEDS: amLODIPine BESYLATE 10 MG TABLET (FP) PO SCH (09:47)
[2018-01-13] MEDS: PRENATAL VITAMINS W/ FOLIC ACID TABLET (FP) PO SCH (09:47)
[2018-01-13] MEDS: THIAMINE HCL 100 MG TABLET (FP) PO SCH (21:08)
[2018-01-13] MEDS: QUEtiapine FUMARATE 200 MG TABLET PO SCH (21:08)
[2018-01-14] MEDS: amLODIPine BESYLATE 10 MG TABLET (FP) PO SCH (09:28)
[2018-01-14] MEDS: PRENATAL VITAMINS W/ FOLIC ACID TABLET (FP) PO SCH (09:28)
[2018-01-14] MEDS: THIAMINE HCL 100 MG TABLET (FP) PO SCH (21:15)
[2018-01-14] MEDS: QUEtiapine FUMARATE 200 MG TABLET PO SCH (21:15)
[2018-01-15] MEDS: PRENATAL VITAMINS W/ FOLIC ACID TABLET (FP) PO SCH (09:48)
[2018-01-15] MEDS: amLODIPine BESYLATE 10 MG TABLET (FP) PO SCH (09:48)
--- NOTE | 2018-01-15 12:51 | PN ---
Psychiatric Progress Note Vital Signs: Vital Signs Period Temp Pulse Resp BP Sys/Salgado Pulse Ox Last 24 Hr 98.5 F 76-82 18-20 127-147/70-89 Date of Session: 01/15/18 Chief Complaint:: discharge visit HPI: patient addressing alcohol, cocaine dependence comorbid bipolar I disorder ROS: WNL Current Medications: Active Medications Generic Name Dose Route Start Last Admin Trade Name Freq PRN Reason Stop Dose Admin Acetaminophen 650 mg 12/23/17 19:48 Tylenol - PO Q4H PRN FEVER Al Hydroxide/Mg Hydroxide 30 ml 12/23/17 19:48 Mylanta Oral Suspension - PO Q6H PRN DYSPEPSIA Amlodipine Besylate 10 mg 12/23/17 20:00 01/15/18 09:48 Norvasc - PO 10 mg DAILY SHERI Administration Colloidal Oatmeal 1 applic 12/31/17 14:19 12/31/17 21:15 Aveeno Soap - TP 1 applic DAILY PRN Administration HYGEINE Eucalyptus/Menthol/Phenol/Sorbitol 1 each 12/23/17 19:48 Cepastat Lozenge - MM Q4H PRN SORE THROAT Guaifenesin 10 ml 12/23/17 19:48 Robitussin Dm - PO Q6H PRN COUGH Hydroxyzine Pamoate 50 mg 12/23/17 19:48 Vistaril - PO Q4H PRN AGITATION Ibuprofen 400 mg 12/23/17 19:48 Motrin - PO Q6H PRN Pain level 4-6 Loperamide HCl 4 mg 12/23/17 19:48 Imodium - PO Q6H PRN DIARRHEA Magnesium Citrate 300 ml 12/23/17 19:48 Citroma - PO Q48H PRN CONSTIPATION Magnesium Hydroxide 30 ml 12/23/17 19:48 Milk Of Magnesia - PO DAILY PRN CONSTIPATION Melatonin 5 mg 12/23/17 22:00 Melatonin PO HS PRN INSOMNIA Multivit/Folic Acid/Iron 1 tab 12/24/17 10:00 01/15/18 09:48 Vitamins (Sjr) - PO 1 tab DAILY SHERI Administration Pseudoephedrine/Triprolidine 1 combo 12/23/17 19:48 Actifed - PO TID PRN NASAL CONGESTION Quetiapine Fumarate 200 mg 12/23/17 22:00 01/14/18 21:15 Seroquel - PO 200 mg HS SHERI Administration Thiamine HCl 100 mg 12/23/17 22:00 01/14/18 21:15 Vitamin B1 - PO 100 mg HS SHERI Administration Current Side Effect: No Lab tests ordered: No Lab tests reviewed: Yes Provider note:: Patient will complete his treatment on 01/16/18 and meet his identified goals, will continue to address his issues at [facility] inpatient treatment program. Patient verbalized his resolution to continue maintain abstinence and stay away from "people, places and things". Patient was encouraged utilize all supports available to prevent relapse. PAtient reports that effective and he feels better, denies suicidal/homicidal thoughts, scripts provided for 30 days supply, patient is stable for discharge tomorrow. Total face to face time:: 20 Mental Status Exam - Mental Status Exam Alert and Oriented to: Time, Place, Person Cognitive Function: Good Patient Appearance: Well Groomed Mood: Hopeful Affect: Appropriate, Mood Congruent Patient Behavior: Cooperative Speech Pattern: Clear Voice Loudness: Normal Thought Process: Intact, Goal Oriented Thought Disorder: Not Present Hallucinations: Denies Suicidal Ideation: Denies Homicidal Ideation: Denies Insight/Judgement: Good Sleep: Well Appetite: Good Muscle strength/Tone: Normal Gait/Station: Normal Psychiatric Treatment Plan - Problem List (1) Alcohol dependence Current Visit: Yes (2) Bipolar I disorder, most recent episode depressed Current Visit: Yes (3) Cocaine dependence Current Visit: Yes Qualifiers: Substance use status: uncomplicated Qualified Code(s): F14.20 - Cocaine dependence, uncomplicated (4) Bipolar disorder Current Visit: Yes
[2018-01-15] MEDS: QUEtiapine FUMARATE 200 MG TABLET PO SCH (21:25)
[2018-01-15] MEDS: THIAMINE HCL 100 MG TABLET (FP) PO SCH (21:25)
[2018-01-16 07:06] VITALS: BP 129/72; PULSE 61; TEMP 98.4
[2018-01-16] MEDS: PRENATAL VITAMINS W/ FOLIC ACID TABLET (FP) PO SCH (09:30)
[2018-01-16] MEDS: amLODIPine BESYLATE 10 MG TABLET (FP) PO SCH (09:30)
== END 2018-01-16 10:05 | disposition home or self-care (01) | DRG 772 ==
LOC: YASAS 13:00 → Y5N 17:36
PROVIDERS: ADMIT Psychiatry & Neurology Psychiatry; ATTEND Psychiatry & Neurology Psychiatry
PROC: HZ42ZZZ Group Counseling for Substance Abuse Treatment, Cognitive-Behavioral (ICD-10-PCS; principal; 2017-12-23)
DX: F10.20 Alcohol dependence, uncomplicated (principal); F14.20 Cocaine dependence, uncomplicated; F12.20 Cannabis dependence, uncomplicated; F31.30 Bipolar disorder, current episode depressed, mild or moderate severity, unspecified; I10 Essential (primary) hypertension; E66.9 Obesity, unspecified; Z68.35 Body mass index [BMI] 35.0-35.9, adult
CPT/HCPCS: 36415; 80053; 81003; 85027; 86593; 93005; 93010

== ENCOUNTER 2019-05-04 09:58 | Inpatient (IN) | payer OTHER ==
[2019-05-04 11:08] VITALS: BMI 39.5
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
[2019-05-04] MEDS ORDERED: MENTHOL/PHENOL 1 EACH UD MM PRN (12:03)
[2019-05-04] MEDS ORDERED: METHOCARBAMOL 500 MG TABLET PO PRN (12:03)
[2019-05-04] MEDS ORDERED: hydrOXYzine PAMOATE 25 MG CAPSULE (FP) PO PRN (12:03)
[2019-05-04] MEDS ORDERED: IBUPROFEN 400 MG TABLET (FP) PO PRN (12:03)
[2019-05-04] MEDS ORDERED: chlordiazePOXIDE HCL 25 MG CAPSULE PO PRN (12:03)
[2019-05-04] MEDS ORDERED: MAGNESIUM CITRATE 300 ML BOTTLE PO PRN (12:03)
[2019-05-04] MEDS ORDERED: MAGNESIUM HYDROX 2400MG/30ML ORAL SUSPENSION 30 ML CUP PO PRN (12:03)
[2019-05-04] MEDS ORDERED: MAG HYDROX/AL HYDROX/SIMETH 30 ML UNIT-DOSE CUP PO PRN (12:03)
[2019-05-04] MEDS ORDERED: BISMUTH SUBSALICYLATE 262 MG/15 ML BTL PO PRN (12:03)
[2019-05-04] MEDS ORDERED: ACETAMINOPHEN 325 MG TABLET (FP) PO PRN ×2 (12:03)
[2019-05-04 14:40] LABS: HEMATOCRIT 42.7 % (35.4-49); HEMOGLOBIN 14.5 GM/dL (11.7-16.9); MCH 28.7 pg (25.7-33.7); MCHC 33.8 g/dl (32.0-35.9); MEAN CELL VOLUME 84.8 fl (80-96); MEAN PLT VOLUME 7.5 fl (7.5-11.1); PLATELET COUNT 309 K/MM3 (134-434); RBC 5.04 M/mm3 (4.00-5.60); RDW 16.7 % (11.9-15.9); WHITE BLOOD COUNT 8.5 K/mm3 (4.0-10.0)
[2019-05-04 14:51] LABS: ALBUMIN 3.7 g/dl (3.4-5.0); BILIRUBIN,TOTAL 0.4 mg/dL (0.2-1); BLOOD UREA NITROGEN 11.6 mg/dL (7-18); CALCIUM 8.9 mg/dL (8.5-10.1); CREATININE 1.2 mg/dL (0.55-1.3); TOT PROT 7.1 g/dl (6.4-8.2)
[2019-05-04] MEDS: chlordiazePOXIDE HCL 25 MG CAPSULE PO SCH ×2 (17:07→22:30)
[2019-05-04] MEDS: THIAMINE HCL 100 MG TABLET (FP) PO SCH (22:30)
[2019-05-04] MEDS: MELATONIN 5 MG TABLETS PO PRN (22:30)
[2019-05-05] MEDS: chlordiazePOXIDE HCL 25 MG CAPSULE PO SCH ×4 (05:36→22:25)
--- NOTE | 2019-05-05 09:39 | PN ---
[facility] CIWA - CIWA Score Nausea/Vomitin-Mild Nausea/No Vomiting Muscle Tremors: 3 Anxiety: 3 Agitation: 2 Paroxysmal Sweats: 2 Orientation: 0-Oriented Tacttile Disturbances: 0-None Auditory Disturbances: 0-None Visual Disturbances: 0-None Headache: 0-None Present CIWA-Ar Total Score: 11 [facility] Progress Note (SOAP) Subjective: 49 years old male admitted on 05/04/19 for acute alcohol withdrawal sx management doing well with librium detox regimen resting on bed comfortably history of hypertension treated by dietary control encourage weight loss Objective: 05/05/19 09:40 Vital Signs Temperature 97.1 F L 05/05/19 09:36 Pulse Rate 73 05/05/19 09:36 Respiratory Rate 18 05/05/19 09:36 Blood Pressure 121/70 05/05/19 09:36 O2 Sat by Pulse Oximetry (%) Laboratory Last Values WBC 8.5 K/mm3 (4.0-10.0) 05/04/19 12:00 RBC 5.04 M/mm3 (4.00-5.60) 05/04/19 12:00 Hgb 14.5 GM/dL (11.7-16.9) 05/04/19 12:00 Hct 42.7 % (35.4-49) 05/04/19 12:00 MCV 84.8 fl (80-96) 05/04/19 12:00 MCH 28.7 pg (25.7-33.7) 05/04/19 12:00 MCHC 33.8 g/dl (32.0-35.9) 05/04/19 12:00 RDW 16.7 % (11.9-15.9) H 05/04/19 12:00 Plt Count 309 K/MM3 (134-434) 05/04/19 12:00 MPV 7.5 fl (7.5-11.1) 05/04/19 12:00 Sodium 143 mmol/L (136-145) 05/04/19 12:00 Potassium 4.0 mmol/L (3.5-5.1) 05/04/19 12:00 Chloride 108 mmol/L (98-107) H 05/04/19 12:00 Carbon Dioxide 25 mmol/L (21-32) 05/04/19 12:00 Anion Gap 10 MMOL/L (8-16) 05/04/19 12:00 BUN 11.6 mg/dL (7-18) 05/04/19 12:00 Creatinine 1.2 mg/dL (0.55-1.3) 05/04/19 12:00 Est GFR (CKD-EPI)AfAm 81.80 05/04/19 12:00 Est GFR (CKD-EPI)NonAf 70.58 05/04/19 12:00 Random Glucose 70 mg/dL (74-106) L 05/04/19 12:00 Calcium 8.9 mg/dL (8.5-10.1) 05/04/19 12:00 Total Bilirubin 0.4 mg/dL (0.2-1) 05/04/19 12:00 AST 17 U/L (15-37) 05/04/19 12:00 ALT 35 U/L (13-61) 05/04/19 12:00 Alkaline Phosphatase 78 U/L (45-117) 05/04/19 12:00 Total Protein 7.1 g/dl (6.4-8.2) 05/04/19 12:00 Albumin 3.7 g/dl (3.4-5.0) 05/04/19 12:00 RPR Titer Nonreactive (NONREACTIVE) 05/04/19 12:00 lab noted Assessment: 05/05/19 09:41 alcohol withdrawal sx alert oriented x 3 05/05/19 09:42 S1S2 Regular Plan: continue librium detox regimen
[2019-05-05] MEDS: PRENATAL VITAMINS W/ FOLIC ACID TABLET (FP) PO SCH (10:34)
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
[2019-05-05] MEDS: THIAMINE HCL 100 MG TABLET (FP) PO SCH (22:25)
[2019-05-05] MEDS: QUEtiapine FUMARATE 200 MG TABLET PO SCH (22:25)
[2019-05-06] MEDS: chlordiazePOXIDE HCL 25 MG CAPSULE PO SCH ×4 (06:06→22:07)
--- NOTE | 2019-05-06 10:06 | PN ---
[facility] CIWA - CIWA Score Nausea/Vomitin-Mild Nausea/No Vomiting Muscle Tremors: 2 Anxiety: 2 Agitation: 2 Paroxysmal Sweats: 1-Minimal Palms Moist Orientation: 0-Oriented Tacttile Disturbances: 0-None Auditory Disturbances: 0-None Visual Disturbances: 0-None Headache: 0-None Present CIWA-Ar Total Score: 8 S Progress Note (SOAP) Subjective: doing well with librium detox regimen limited conversation with staff seen by psychiatrist begin seroquel 200 mg po hs patient tolerated well Objective: 05/06/19 10:05 Vital Signs Temperature 97.1 F L 05/06/19 09:35 Pulse Rate 64 05/06/19 09:35 Respiratory Rate 18 05/06/19 09:35 Blood Pressure 121/67 05/06/19 09:35 O2 Sat by Pulse Oximetry (%) Laboratory Last Values WBC 8.5 K/mm3 (4.0-10.0) 05/04/19 12:00 RBC 5.04 M/mm3 (4.00-5.60) 05/04/19 12:00 Hgb 14.5 GM/dL (11.7-16.9) 05/04/19 12:00 Hct 42.7 % (35.4-49) 05/04/19 12:00 MCV 84.8 fl (80-96) 05/04/19 12:00 MCH 28.7 pg (25.7-33.7) 05/04/19 12:00 MCHC 33.8 g/dl (32.0-35.9) 05/04/19 12:00 RDW 16.7 % (11.9-15.9) H 05/04/19 12:00 Plt Count 309 K/MM3 (134-434) 05/04/19 12:00 MPV 7.5 fl (7.5-11.1) 05/04/19 12:00 Sodium 143 mmol/L (136-145) 05/04/19 12:00 Potassium 4.0 mmol/L (3.5-5.1) 05/04/19 12:00 Chloride 108 mmol/L (98-107) H 05/04/19 12:00 Carbon Dioxide 25 mmol/L (21-32) 05/04/19 12:00 Anion Gap 10 MMOL/L (8-16) 05/04/19 12:00 BUN 11.6 mg/dL (7-18) 05/04/19 12:00 Creatinine 1.2 mg/dL (0.55-1.3) 05/04/19 12:00 Est GFR (CKD-EPI)AfAm 81.80 05/04/19 12:00 Est GFR (CKD-EPI)NonAf 70.58 05/04/19 12:00 Random Glucose 70 mg/dL (74-106) L 05/04/19 12:00 Calcium 8.9 mg/dL (8.5-10.1) 05/04/19 12:00 Total Bilirubin 0.4 mg/dL (0.2-1) 05/04/19 12:00 AST 17 U/L (15-37) 05/04/19 12:00 ALT 35 U/L (13-61) 05/04/19 12:00 Alkaline Phosphatase 78 U/L (45-117) 05/04/19 12:00 Total Protein 7.1 g/dl (6.4-8.2) 05/04/19 12:00 Albumin 3.7 g/dl (3.4-5.0) 05/04/19 12:00 RPR Titer Nonreactive (NONREACTIVE) 05/04/19 12:00 lab noted Assessment: 05/06/19 10:06 alcohol withdrawal sx alert oriented x 3 no wheezing Plan: continue librium detox regimen
[2019-05-06] MEDS: PRENATAL VITAMINS W/ FOLIC ACID TABLET (FP) PO SCH (11:05)
[2019-05-06] MEDS: THIAMINE HCL 100 MG TABLET (FP) PO SCH (22:07)
[2019-05-06] MEDS: QUEtiapine FUMARATE 200 MG TABLET PO SCH (22:07)
[2019-05-07] MEDS ORDERED: chlordiazePOXIDE HCL 10 MG CAPSULE PO PRN
[2019-05-07] MEDS: chlordiazePOXIDE HCL 10 MG CAPSULE PO SCH ×4 (06:03→22:51)
[2019-05-07] MEDS: PRENATAL VITAMINS W/ FOLIC ACID TABLET (FP) PO SCH (10:33)
--- NOTE | 2019-05-07 11:57 | PN ---
S CIWA - CIWA Score Nausea/Vomitin-No Nausea/No Vomiting Muscle Tremors: 1-None Visible, but [place] Anxiety: 1-Mildly Anxious Agitation: 1-Slight > Activity Paroxysmal Sweats: No Perspiration Orientation: 0-Oriented Tacttile Disturbances: 0-None Auditory Disturbances: 0-None Visual Disturbances: 0-None Headache: 1-Very Mild CIWA-Ar Total Score: 4 BHS Progress Note (SOAP) Subjective: BP:117/64 P:68 R:18 T:95.6 Laboratory 05/04/19 05/04/19 05/04/19 12:00 12:00 12:00 WBC 8.5 K/mm3 K/mm3 (4.0-10.0) RBC 5.04 M/mm3 M/mm3 (4.00-5.60) Hgb 14.5 GM/dL GM/dL (11.7-16.9) Hct 42.7 % % (35.4-49) MCV 84.8 fl fl (80-96) MCH 28.7 pg pg (25.7-33.7) MCHC 33.8 g/dl g/dl (32.0-35.9) RDW 16.7 % H % (11.9-15.9) Plt Count 309 K/MM3 K/MM3 (134-434) MPV 7.5 fl fl (7.5-11.1) Sodium 143 mmol/L mmol/L (136-145) Potassium 4.0 mmol/L mmol/L (3.5-5.1) Chloride 108 mmol/L H mmol/L (98-107) Carbon Dioxide 25 mmol/L mmol/L (21-32) Anion Gap 10 MMOL/L MMOL/L (8-16) BUN 11.6 mg/dL mg/dL (7-18) Creatinine 1.2 mg/dL mg/dL (0.55-1.3) Est GFR (CKD-EPI)AfAm 81.80 Est GFR (CKD-EPI)NonAf 70.58 Random Glucose 70 mg/dL L mg/dL (74-106) Calcium 8.9 mg/dL mg/dL (8.5-10.1) Total Bilirubin 0.4 mg/dL mg/dL (0.2-1) AST 17 U/L U/L (15-37) ALT 35 U/L U/L (13-61) Alkaline Phosphatase 78 U/L U/L (45-117) Total Protein 7.1 g/dl g/dl (6.4-8.2) Albumin 3.7 g/dl g/dl (3.4-5.0) RPR Titer Nonreactive (NONREACTIVE) TB (QFT) Incubation TB Test (QFT) Nil TB Test (QFT) Mitogen TB Test (QFT) Antigen TB Test (QFT) TB Positive Criteria 05/04/19 12:00 WBC RBC Hgb Hct MCV MCH MCHC RDW Plt Count MPV Sodium Potassium Chloride Carbon Dioxide Anion Gap BUN Creatinine Est GFR (CKD-EPI)AfAm Est GFR (CKD-EPI)NonAf Random Glucose Calcium Total Bilirubin AST ALT Alkaline Phosphatase Total Protein Albumin RPR Titer TB (QFT) Incubation (.) TB Test (QFT) Nil 0.02 IU/mL IU/mL (.) TB Test (QFT) Mitogen >10.00 IU/mL IU/mL (.) TB Test (QFT) Antigen 0.05 IU/mL IU/mL (.) TB Test (QFT) Negative (Negative) TB Positive Criteria (.) Objective: 05/07/19 11:56 Patient has no complaints doing much better. Assessment: 05/07/19 11:56 1. Alcohol Dependence: Plan: 1. Continue detox. Continue to encourage PO fluids, proper nutrition, and activities in detox.
[2019-05-07] MEDS: QUEtiapine FUMARATE 200 MG TABLET PO SCH (22:50)
[2019-05-07] MEDS: THIAMINE HCL 100 MG TABLET (FP) PO SCH (22:50)
[2019-05-07] MEDS: MELATONIN 5 MG TABLETS PO PRN (22:51)
[2019-05-08] MEDS: chlordiazePOXIDE HCL 10 MG CAPSULE PO SCH ×2 (05:59→17:46)
[2019-05-08] MEDS: PRENATAL VITAMINS W/ FOLIC ACID TABLET (FP) PO SCH (10:50)
--- NOTE | 2019-05-08 16:19 | PN ---
[facility] CIWA - CIWA Score Nausea/Vomitin-No Nausea/No Vomiting Muscle Tremors: None Anxiety: 0-No Anxiety, at Ease Agitation: 1-Slight > Activity Paroxysmal Sweats: No Perspiration Orientation: 0-Oriented Tacttile Disturbances: 0-None Auditory Disturbances: 0-None Visual Disturbances: 0-None Headache: 0-None Present CIWA-Ar Total Score: 1 BHS Progress Note (SOAP) Subjective: Patient denies current Withdrawal / Detox symptoms and reports that he feels well overall at this time. Objective: PATIENT A & O X 3, OBSERVED AMBULATING ON UNIT UNASSISTED. IN NO ACUTE DISTRESS. 05/08/19 16:18 Vital Signs Temperature 96.7 F L 05/08/19 13:35 Pulse Rate 59 L 05/08/19 13:35 Respiratory Rate 18 05/08/19 13:35 Blood Pressure 159/95 05/08/19 13:35 O2 Sat by Pulse Oximetry (%) Laboratory Tests 05/04/19 05/04/19 05/04/19 12:00 12:00 12:00 WBC 8.5 RBC 5.04 Hgb 14.5 Hct 42.7 MCV 84.8 MCH 28.7 MCHC 33.8 RDW 16.7 H Plt Count 309 MPV 7.5 Sodium 143 Potassium 4.0 Chloride 108 H Carbon Dioxide 25 Anion Gap 10 BUN 11.6 Creatinine 1.2 Est GFR (CKD-EPI)AfAm 81.80 Est GFR (CKD-EPI)NonAf 70.58 Random Glucose 70 L Calcium 8.9 Total Bilirubin 0.4 AST 17 ALT 35 Alkaline Phosphatase 78 Total Protein 7.1 Albumin 3.7 RPR Titer Nonreactive TB (QFT) Incubation TB Test (QFT) Nil TB Test (QFT) Mitogen TB Test (QFT) Antigen TB Test (QFT) TB Positive Criteria 05/04/19 12:00 WBC RBC Hgb Hct MCV MCH MCHC RDW Plt Count MPV Sodium Potassium Chloride Carbon Dioxide Anion Gap BUN Creatinine Est GFR (CKD-EPI)AfAm Est GFR (CKD-EPI)NonAf Random Glucose Calcium Total Bilirubin AST ALT Alkaline Phosphatase Total Protein Albumin RPR Titer TB (QFT) Incubation TB Test (QFT) Nil 0.02 TB Test (QFT) Mitogen >10.00 TB Test (QFT) Antigen 0.05 TB Test (QFT) Negative TB Positive Criteria LABS NOTED. Assessment: 05/08/19 16:18 WITHDRAWAL SYMPTOMS. Plan: CONTINUE DETOX. PATIENT SCHEDULED FOR D/C FROM DETOX UNIT TOMORROW.
[2019-05-08] MEDS: THIAMINE HCL 100 MG TABLET (FP) PO SCH (22:31)
[2019-05-08] MEDS: QUEtiapine FUMARATE 200 MG TABLET PO SCH (22:31)
[2019-05-09] MEDS ORDERED: chlordiazePOXIDE HCL 10 MG CAPSULE PO ONE (05:00)
[2019-05-09 09:27] VITALS: BP 135/83; PULSE 77; TEMP 98.1
[2019-05-09] MEDS: PRENATAL VITAMINS W/ FOLIC ACID TABLET (FP) PO SCH (10:56)
--- NOTE | 2019-05-09 14:50 | DS ---
[facility] Detox Discharge Summary Admission Date: 05/04/19 Discharge Date: 05/09/19 - History Present History: Alcohol Dependence Additional Comments: 49 years old male admitted on 05/04/19 for alcohol withdrawl sx management doing well with librium detox regimen no compliation through out the detox stay alert oriented x 3 steady gait no dizziness speech clearly coherently goal directed behavior Pertinent Past History: hypertension patient agrees to returning as soon as possible to [facility] - Physical Exam Results Vital Signs: Vital Signs Temperature 98.1 F 05/09/19 09:26 Pulse Rate 77 05/09/19 09:26 Respiratory Rate 18 05/09/19 09:26 Blood Pressure 135/83 05/09/19 09:26 O2 Sat by Pulse Oximetry (%) Pertinent Admission Physical Exam Findings: alcohol withdrawal sx Laboratory Last Values WBC 8.5 K/mm3 (4.0-10.0) 05/04/19 12:00 RBC 5.04 M/mm3 (4.00-5.60) 05/04/19 12:00 Hgb 14.5 GM/dL (11.7-16.9) 05/04/19 12:00 Hct 42.7 % (35.4-49) 05/04/19 12:00 MCV 84.8 fl (80-96) 05/04/19 12:00 MCH 28.7 pg (25.7-33.7) 05/04/19 12:00 MCHC 33.8 g/dl (32.0-35.9) 05/04/19 12:00 RDW 16.7 % (11.9-15.9) H 05/04/19 12:00 Plt Count 309 K/MM3 (134-434) 05/04/19 12:00 MPV 7.5 fl (7.5-11.1) 05/04/19 12:00 Sodium 143 mmol/L (136-145) 05/04/19 12:00 Potassium 4.0 mmol/L (3.5-5.1) 05/04/19 12:00 Chloride 108 mmol/L (98-107) H 05/04/19 12:00 Carbon Dioxide 25 mmol/L (21-32) 05/04/19 12:00 Anion Gap 10 MMOL/L (8-16) 05/04/19 12:00 BUN 11.6 mg/dL (7-18) 05/04/19 12:00 Creatinine 1.2 mg/dL (0.55-1.3) 05/04/19 12:00 Est GFR (CKD-EPI)AfAm 81.80 05/04/19 12:00 Est GFR (CKD-EPI)NonAf 70.58 05/04/19 12:00 Random Glucose 70 mg/dL (74-106) L 05/04/19 12:00 Calcium 8.9 mg/dL (8.5-10.1) 05/04/19 12:00 Total Bilirubin 0.4 mg/dL (0.2-1) 05/04/19 12:00 AST 17 U/L (15-37) 05/04/19 12:00 ALT 35 U/L (13-61) 05/04/19 12:00 Alkaline Phosphatase 78 U/L (45-117) 05/04/19 12:00 Total Protein 7.1 g/dl (6.4-8.2) 05/04/19 12:00 Albumin 3.7 g/dl (3.4-5.0) 05/04/19 12:00 RPR Titer Nonreactive (NONREACTIVE) 05/04/19 12:00 TB (QFT) Incubation (.) 05/04/19 12:00 TB Test (QFT) Nil 0.02 IU/mL (.) 05/04/19 12:00 TB Test (QFT) Mitogen >10.00 IU/mL (.) 05/04/19 12:00 TB Test (QFT) Antigen 0.05 IU/mL (.) 05/04/19 12:00 TB Test (QFT) Negative (Negative) 05/04/19 12:00 TB Positive Criteria (.) 05/04/19 12:00 lab noted - Treatment Hospital Course: Detox Protocol Followed, Detoxed Safely, Responded well, Discharged Condition Good, Rehab Referral Accepted - Medication Discharge Medications: Ambulatory Orders Quetiapine Fumarate [Seroquel -] 200 mg PO BID 05/04/19 - AMA Did Patient Leave Against Medical Advice: No CIWA Score - CIWA Score Nausea/Vomitin-No Nausea/No Vomiting Muscle Tremors: None Anxiety: 0-No Anxiety, at Ease Agitation: 0-Normal Activity (patient was disappointed that [facility] has no bed available today) Paroxysmal Sweats: No Perspiration Orientation: 0-Oriented Tacttile Disturbances: 0-None Auditory Disturbances: 0-None Visual Disturbances: 0-None Headache: 0-None Present CIWA-Ar Total Score: 0
== END 2019-05-09 11:36 | disposition home or self-care (01) | DRG 774 ==
LOC: YASAS 09:58 → Y3N 13:02
PROVIDERS: ADMIT Surgery; ATTEND Surgery
PROC: HZ2ZZZZ Detoxification Services for Substance Abuse Treatment (ICD-10-PCS; principal; 2019-05-04)
DX: F10.230 Alcohol dependence with withdrawal, uncomplicated (principal); F14.20 Cocaine dependence, uncomplicated; F12.20 Cannabis dependence, uncomplicated; F19.24 Other psychoactive substance dependence with psychoactive substance-induced mood disorder; F31.9 Bipolar disorder, unspecified; I10 Essential (primary) hypertension; G47.00 Insomnia, unspecified
CPT/HCPCS: 36415; 80053; 85027; 86480; 86593

== ENCOUNTER 2019-07-16 09:48 | Inpatient (IN) | payer OTHER ==
[2019-07-16 10:20] VITALS: BMI 37.4
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
[2019-07-16] MEDS ORDERED: IBUPROFEN 400 MG TABLET (FP) PO PRN (11:00)
[2019-07-16] MEDS ORDERED: MENTHOL/PHENOL 1 EACH UD MM PRN (11:00)
[2019-07-16] MEDS ORDERED: P-EPHED 60MG/TRIPROLIDI 2.5MG TABLET PO PRN (11:00)
[2019-07-16] MEDS ORDERED: MAGNESIUM CITRATE 300 ML BOTTLE PO PRN (11:00)
[2019-07-16] MEDS ORDERED: LOPERAMIDE HCL 2 MG CAPSULE PO PRN (11:00)
[2019-07-16] MEDS ORDERED: ACETAMINOPHEN 325 MG TABLET (FP) PO PRN (11:00)
[2019-07-16] MEDS ORDERED: guaiFENesin 200 MG/10 ML 10 ML UNIT-DOSE CUPS PO PRN (11:00)
[2019-07-16] MEDS ORDERED: MAG HYDROX/AL HYDROX/SIMETH 30 ML UNIT-DOSE CUP PO PRN (11:00)
[2019-07-16] MEDS ORDERED: MAGNESIUM HYDROX 2400MG/30ML ORAL SUSPENSION 30 ML CUP PO PRN (11:00)
[2019-07-16] MEDS ORDERED: QUEtiapine FUMARATE 200 MG TABLET PO SCH (11:15)
--- NOTE | 2019-07-16 11:41 | PN ---
Teaching Attending Note Name of Resident: Jose Juan Causey ATTENDING PHYSICIAN STATEMENT I saw and evaluated the patient. I reviewed the resident's note and discussed the case with the resident. I agree with the resident's findings and plan as documented. SUBJECTIVE: Agree with resident's subjective findings. OBJECTIVE: Agree with resident's objective findings. ASSESSMENT AND PLAN: Agree with plan to admit patient for rehab. Dr. Martinez
[2019-07-16] MEDS ORDERED: COLLOIDAL OATMEAL 1 BAR EACH TP PRN (12:48)
[2019-07-16 16:34] LABS: HEMOGLOBIN 14.6 GM/dL (11.7-16.9); MCH 30.1 pg (25.7-33.7); MCHC 34.7 g/dl (32.0-35.9); MEAN CELL VOLUME 86.6 fl (80-96); PLATELET COUNT 299 K/MM3 (134-434); RBC 4.85 M/mm3 (4.00-5.60); RDW 16.3 % (11.9-15.9); WHITE BLOOD COUNT 5.5 K/mm3 (4.0-10.0)
[2019-07-16 16:47] LABS: ALBUMIN 3.4 g/dl (3.4-5.0); BILIRUBIN,TOTAL 0.5 mg/dL (0.2-1); BLOOD UREA NITROGEN 12.1 mg/dL (7-18); CALCIUM 8.8 mg/dL (8.5-10.1); CREATININE 1.3 mg/dL (0.55-1.3); POTASSIUM 4.1 mmol/L (3.5-5.1); TOT PROT 6.8 g/dl (6.4-8.2)
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
[2019-07-16] MEDS: QUEtiapine FUMARATE 200 MG TABLET PO SCH (21:09)
[2019-07-16] MEDS: THIAMINE HCL 100 MG TABLET (FP) PO SCH (21:09)
[2019-07-16] MEDS ORDERED: MELATONIN 5 MG TABLETS PO PRN (22:00)
[2019-07-17] MEDS: QUEtiapine FUMARATE 100 MG TABLET (FP) PO SCH (09:56)
[2019-07-17] MEDS: PRENATAL VITAMINS W/ FOLIC ACID TABLET (FP) PO SCH (09:56)
[2019-07-17 17:17] LABS: URINE APPEARANCE CLEAR; URINE BILIRUBIN NEGATIVE (NEGATIVE); URINE COLOR YELLOW; URINE GLUCOSE (UA) NEGATIVE (NEGATIVE); URINE KETONE NEGATIVE (NEGATIVE); URINE LEUK ESTERASE NEGATIVE (NEGATIVE); URINE NITRITE NEGATIVE (NEGATIVE); URINE PROTEIN NEGATIVE (NEGATIVE); URINE UROBILINOGEN 0.2 mg/dL (0.2-1.0)
[2019-07-17] MEDS: QUEtiapine FUMARATE 200 MG TABLET PO SCH (21:04)
[2019-07-17] MEDS: THIAMINE HCL 100 MG TABLET (FP) PO SCH (21:05)
[2019-07-18 06:43] VITALS: TEMP 97.8
[2019-07-18] MEDS: QUEtiapine FUMARATE 100 MG TABLET (FP) PO SCH (09:19)
[2019-07-18] MEDS: PRENATAL VITAMINS W/ FOLIC ACID TABLET (FP) PO SCH (09:20)
[2019-07-18] MEDS: THIAMINE HCL 100 MG TABLET (FP) PO SCH (21:04)
[2019-07-18] MEDS: QUEtiapine FUMARATE 200 MG TABLET PO SCH (21:04)
[2019-07-19] MEDS: QUEtiapine FUMARATE 100 MG TABLET (FP) PO SCH (10:11)
[2019-07-19] MEDS: PRENATAL VITAMINS W/ FOLIC ACID TABLET (FP) PO SCH (10:11)
[2019-07-19] MEDS: THIAMINE HCL 100 MG TABLET (FP) PO SCH (21:05)
[2019-07-19] MEDS: QUEtiapine FUMARATE 200 MG TABLET PO SCH (21:05)
[2019-07-20 07:42] VITALS: BP 128/74; PULSE 64
[2019-07-20] MEDS: PRENATAL VITAMINS W/ FOLIC ACID TABLET (FP) PO SCH (10:19)
[2019-07-20] MEDS: QUEtiapine FUMARATE 100 MG TABLET (FP) PO SCH (10:19)
== END 2019-07-20 17:49 | disposition left against medical advice (07) | DRG 770 ==
LOC: YASAS 09:48 → Y5N 11:22
PROVIDERS: ADMIT Neuromusculoskeletal Medicine & OMM; ATTEND Neuromusculoskeletal Medicine & OMM
PROC: HZ42ZZZ Group Counseling for Substance Abuse Treatment, Cognitive-Behavioral (ICD-10-PCS; principal; 2019-07-16)
DX: F10.20 Alcohol dependence, uncomplicated (principal); F14.20 Cocaine dependence, uncomplicated; F12.20 Cannabis dependence, uncomplicated; F17.210 Nicotine dependence, cigarettes, uncomplicated; F31.9 Bipolar disorder, unspecified; I10 Essential (primary) hypertension; Z91.013 Allergy to seafood; Z91.018 Allergy to other foods
CPT/HCPCS: 36415; 80053; 81003; 85027; 86593; 86803; 87389

== ENCOUNTER 2019-11-05 10:26 | Inpatient (IN) | payer OTHER ==
--- NOTE | 2019-11-05 10:47 | BHS.RME ---
Substance Use & Tx History - Substance Use History Alcohol Substance amount: 1 pint vodka Frequency of use: Daily Substance route: Oral Date of Last Use: 11/04/19 Cocaine (Crack) Substance amount: 100-300$ Frequency of use: Daily Substance route: Smoking Date of Last Use: 11/04/19 Physical/Psych/Mental Status - Behavior General Behavior: Increased activity (restlessness, agitation) Eye Contact: Normal - Cooperativeness Cooperativeness: Cooperative - Thinking Thought Processes: Tight, Logical, Goal Directed Thought content: Future oriented - Physical Health Problems Is patient presently having any pain?: No Does patient presently have any injuries (include location): No Does patient currently have a fever: No Is patient : No CIWA Nausea/Vomitin-No Nausea/No Vomiting Muscle Tremors: None Anxiety: 1-Mildly Anxious Agitation: 1-Slight > Activity Paroxysmal Sweats: No Perspiration Orientation: 0-Oriented Tacttile Disturbances: 0-None Auditory Disturbances: 0-None Visual Disturbances: 0-None Headache: 5-Severe CIWA-Ar Total Score: 7
[2019-11-05 11:00] VITALS: BMI 34.9
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
[2019-11-05] MEDS ORDERED: MAG HYDROX/AL HYDROX/SIMETH 30 ML UNIT-DOSE CUP PO PRN (11:15)
[2019-11-05] MEDS ORDERED: IBUPROFEN 400 MG TABLET (FP) PO PRN (11:15)
[2019-11-05] MEDS ORDERED: METHOCARBAMOL 500 MG TABLET PO PRN (11:15)
[2019-11-05] MEDS ORDERED: BISMUTH SUBSALICYLATE 262 MG/15 ML BTL PO PRN (11:15)
[2019-11-05] MEDS ORDERED: MELATONIN 5 MG TABLETS PO PRN (11:15)
[2019-11-05] MEDS ORDERED: MAGNESIUM CITRATE 300 ML BOTTLE PO PRN (11:15)
[2019-11-05] MEDS ORDERED: MAGNESIUM HYDROX 2400MG/30ML ORAL SUSPENSION 30 ML CUP PO PRN (11:15)
[2019-11-05] MEDS ORDERED: chlordiazePOXIDE HCL 25 MG CAPSULE PO PRN (11:15)
[2019-11-05] MEDS ORDERED: ACETAMINOPHEN 325 MG TABLET (FP) PO PRN ×2 (11:15)
[2019-11-05] MEDS ORDERED: MENTHOL/PHENOL 1 EACH UD MM PRN (11:15)
[2019-11-05] MEDS ORDERED: hydrOXYzine PAMOATE 25 MG CAPSULE (FP) PO PRN (11:15)
[2019-11-05] MEDS: chlordiazePOXIDE HCL 25 MG CAPSULE PO SCH ×3 (11:57→22:06)
[2019-11-05] MEDS: NICOTINE 14 MG/24 HOURS TOPICAL PATCH TD SCH (11:58)
[2019-11-05 14:30] LABS: HEMATOCRIT 44.1 % (35.4-49); HEMOGLOBIN 15.2 GM/dL (11.7-16.9); MCH 29.4 pg (25.7-33.7); MCHC 34.3 g/dl (32.0-35.9); MEAN CELL VOLUME 85.7 fl (80-96); MEAN PLT VOLUME 7.6 fl (7.5-11.1); PLATELET COUNT 291 K/MM3 (134-434); RBC 5.15 M/mm3 (4.00-5.60); RDW 15.6 % (11.9-15.9); WHITE BLOOD COUNT 7.4 K/mm3 (4.0-10.0)
[2019-11-05 14:39] LABS: ALBUMIN 3.5 g/dl (3.4-5.0); BILIRUBIN,TOTAL 0.6 mg/dL (0.2-1); BLOOD UREA NITROGEN 7.7 mg/dL (7-18); CALCIUM 8.8 mg/dL (8.5-10.1); POTASSIUM 3.3 mmol/L (3.5-5.1); TOT PROT 7.1 g/dl (6.4-8.2)
--- NOTE | 2019-11-05 17:26 | PN ---
S Progress Note Note: Patient home [facility] pharmacy called. Slim reports that patient has not has not received medications there in over 3 yeats.
[2019-11-05] MEDS: THIAMINE HCL 100 MG TABLET (FP) PO SCH (22:06)
[2019-11-06] MEDS: chlordiazePOXIDE HCL 25 MG CAPSULE PO SCH ×4 (06:05→22:35)
[2019-11-06] MEDS ORDERED: COLLOIDAL OATMEAL 1 BAR EACH TP PRN (09:26)
[2019-11-06] MEDS: PRENATAL VITAMINS W/ FOLIC ACID TABLET (FP) PO SCH (10:38)
[2019-11-06] MEDS: NICOTINE 14 MG/24 HOURS TOPICAL PATCH TD SCH (10:39)
[2019-11-06] MEDS: AMMONIUM LACTATE 12% LOTION 225 GM BOTTLE TP SCH ×2 (11:00→22:34)
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
[2019-11-06] MEDS ORDERED: POTASSIUM CHLORIDE TABS 20 MEQ TABLET.ER (FP) PO ONE (15:46)
--- NOTE | 2019-11-06 15:49 | PN ---
[facility] CIWA - CIWA Score Nausea/Vomitin-No Nausea/No Vomiting Muscle Tremors: None Anxiety: 3 Agitation: 3 Paroxysmal Sweats: 2 Orientation: 0-Oriented Tacttile Disturbances: 1-Very Mild Itch/Numbness Auditory Disturbances: 0-None Visual Disturbances: 0-None Headache: 0-None Present CIWA-Ar Total Score: 9 BHS Progress Note (SOAP) Subjective: Anxious, Sweating. Objective: PATIENT A & O X 3, OBSERVED AMBULATING ON DETOX UNIT UNASSISTED. IN NO ACUTE DISTRESS. 11/06/19 15:46 Vital Signs Temperature 96.6 F L 11/06/19 12:35 Pulse Rate 70 11/06/19 12:35 Respiratory Rate 16 11/06/19 12:35 Blood Pressure 135/70 11/06/19 12:35 O2 Sat by Pulse Oximetry (%) Laboratory Tests 11/05/19 11/05/19 11/05/19 12:00 12:00 12:00 WBC 7.4 RBC 5.15 Hgb 15.2 Hct 44.1 MCV 85.7 MCH 29.4 MCHC 34.3 RDW 15.6 Plt Count 291 MPV 7.6 Sodium 140 Potassium 3.3 L Chloride 106 Carbon Dioxide 26 Anion Gap 7 L BUN 7.7 Creatinine 1.0 Est GFR (CKD-EPI)AfAm 101.98 Est GFR (CKD-EPI)NonAf 87.99 Random Glucose 101 Calcium 8.8 Total Bilirubin 0.6 AST 14 L ALT 29 Alkaline Phosphatase 86 Total Protein 7.1 Albumin 3.5 RPR Titer Nonreactive LABS NOTED. Assessment: 11/06/19 15:48 WITHDRAWAL SYMPTOMS. HYPOKALEMIA. Plan: CONTINUE DETOX. INCREASE DAILY ORAL WATER INTAKE. K-DUR, 40 MEQ ORAL X 1 DOSE TODAY. 20 MEQ ORAL BID TOMORROW. WILL RE-CHECK K LEVEL IN AM ON 11/08/2019.
[2019-11-06] MEDS: QUEtiapine FUMARATE 200 MG TABLET PO SCH (22:34)
[2019-11-06] MEDS: THIAMINE HCL 100 MG TABLET (FP) PO SCH (22:34)
[2019-11-07] MEDS: chlordiazePOXIDE HCL 25 MG CAPSULE PO SCH ×4 (06:48→22:29)
[2019-11-07] MEDS: PRENATAL VITAMINS W/ FOLIC ACID TABLET (FP) PO SCH (10:41)
[2019-11-07] MEDS: QUEtiapine FUMARATE 100 MG TABLET (FP) PO SCH (10:41)
[2019-11-07] MEDS: POTASSIUM CHLORIDE TABS 20 MEQ TABLET.ER (FP) PO SCH ×2 (10:41→18:03)
[2019-11-07] MEDS: AMMONIUM LACTATE 12% LOTION 225 GM BOTTLE TP SCH ×2 (10:42→22:30)
[2019-11-07] MEDS: NICOTINE 14 MG/24 HOURS TOPICAL PATCH TD SCH (10:44)
--- NOTE | 2019-11-07 14:29 | PN ---
S CIWA - CIWA Score Nausea/Vomitin-Mild Nausea/No Vomiting Muscle Tremors: 2 Anxiety: 2 Agitation: 2 Paroxysmal Sweats: 2 Orientation: 0-Oriented Tacttile Disturbances: 0-None Auditory Disturbances: 0-None Visual Disturbances: 0-None Headache: 0-None Present CIWA-Ar Total Score: 9 BHS Progress Note (SOAP) Subjective: Feels ok Objective: 11/07/19 14:28 Last Vital Signs Temp Pulse Resp BP Pulse Ox 96.1 F L 92 H 18 143/69 11/07/19 12:57 11/07/19 12:57 11/07/19 12:57 11/07/19 12:57 Elevated b/p: has htn, not on med Laboratory Tests 11/05/19 11/05/19 11/05/19 12:00 12:00 12:00 WBC 7.4 RBC 5.15 Hgb 15.2 Hct 44.1 MCV 85.7 MCH 29.4 MCHC 34.3 RDW 15.6 Plt Count 291 MPV 7.6 Sodium 140 Potassium 3.3 L Chloride 106 Carbon Dioxide 26 Anion Gap 7 L BUN 7.7 Creatinine 1.0 Est GFR (CKD-EPI)AfAm 101.98 Est GFR (CKD-EPI)NonAf 87.99 Random Glucose 101 Calcium 8.8 Total Bilirubin 0.6 AST 14 L ALT 29 Alkaline Phosphatase 86 Total Protein 7.1 Albumin 3.5 RPR Titer Nonreactive Labs reviewed: K 3.3 Assessment: 11/07/19 14:31 Withdrawal sxs Noted with hypokalemia and untreated HTN Plan: Continue detox Encouraged PO water intake HTN: start norvasc 5mg PO daily, monitor b/p Hypokalemia: supplemented, repeat serum K level in AM as ordered
[2019-11-07] MEDS: amLODIPine BESYLATE 5 MG TABLET (FP) PO SCH (15:00)
[2019-11-07] MEDS: QUEtiapine FUMARATE 200 MG TABLET PO SCH (22:29)
[2019-11-07] MEDS: THIAMINE HCL 100 MG TABLET (FP) PO SCH (22:29)
[2019-11-08] MEDS ORDERED: chlordiazePOXIDE HCL 10 MG CAPSULE PO PRN
[2019-11-08] MEDS: chlordiazePOXIDE HCL 10 MG CAPSULE PO SCH ×4 (05:19→22:05)
--- NOTE | 2019-11-08 09:59 | PN ---
S CIWA - CIWA Score Nausea/Vomitin-Mild Nausea/No Vomiting Muscle Tremors: 2 Anxiety: 1-Mildly Anxious Agitation: 0-Normal Activity Paroxysmal Sweats: No Perspiration Orientation: 0-Oriented Tacttile Disturbances: 0-None Auditory Disturbances: 0-None Visual Disturbances: 0-None Headache: 2-Mild CIWA-Ar Total Score: 6 BHS Progress Note (SOAP) Subjective: Pt admitted for alcohol detox.Doing well. no complaints O: Vital Signs - 24 hr 11/07/19 11/07/19 11/07/19 10:40 12:57 16:31 Temperature 96.8 F L 96.1 F L Pulse Rate 75 92 H 87 Respiratory 18 18 18 Rate Blood Pressure 139/72 143/69 141/76 11/07/19 11/08/19 11/08/19 20:41 00:18 03:38 Temperature 97.9 F Pulse Rate 85 Respiratory 17 18 18 Rate Blood Pressure 150/81 11/08/19 08:39 Temperature 97.9 F Pulse Rate 73 Respiratory 18 Rate Blood Pressure 140/80 Laboratory Tests 11/05/19 11/05/19 11/05/19 12:00 12:00 12:00 WBC 7.4 RBC 5.15 Hgb 15.2 Hct 44.1 MCV 85.7 MCH 29.4 MCHC 34.3 RDW 15.6 Plt Count 291 MPV 7.6 Sodium 140 Potassium 3.3 L Chloride 106 Carbon Dioxide 26 Anion Gap 7 L BUN 7.7 Creatinine 1.0 Est GFR (CKD-EPI)AfAm 101.98 Est GFR (CKD-EPI)NonAf 87.99 Random Glucose 101 Calcium 8.8 Total Bilirubin 0.6 AST 14 L ALT 29 Alkaline Phosphatase 86 Total Protein 7.1 Albumin 3.5 RPR Titer Nonreactive increased BP low K on replacement a/p: continue alcohol detox follow BP
[2019-11-08] MEDS: QUEtiapine FUMARATE 100 MG TABLET (FP) PO SCH (10:06)
[2019-11-08] MEDS: AMMONIUM LACTATE 12% LOTION 225 GM BOTTLE TP SCH ×2 (10:06→21:00)
[2019-11-08] MEDS: NICOTINE 14 MG/24 HOURS TOPICAL PATCH TD SCH (10:06)
[2019-11-08] MEDS: amLODIPine BESYLATE 5 MG TABLET (FP) PO SCH (10:06)
[2019-11-08] MEDS: PRENATAL VITAMINS W/ FOLIC ACID TABLET (FP) PO SCH (10:06)
[2019-11-08] MEDS: THIAMINE HCL 100 MG TABLET (FP) PO SCH (20:59)
[2019-11-08] MEDS: QUEtiapine FUMARATE 200 MG TABLET PO SCH (20:59)
[2019-11-09] MEDS: chlordiazePOXIDE HCL 10 MG CAPSULE PO SCH ×2 (05:39→17:26)
[2019-11-09] MEDS: QUEtiapine FUMARATE 100 MG TABLET (FP) PO SCH (10:02)
[2019-11-09] MEDS: AMMONIUM LACTATE 12% LOTION 225 GM BOTTLE TP SCH ×2 (10:02→21:06)
[2019-11-09] MEDS: amLODIPine BESYLATE 5 MG TABLET (FP) PO SCH (10:02)
[2019-11-09] MEDS: NICOTINE 14 MG/24 HOURS TOPICAL PATCH TD SCH (10:02)
[2019-11-09] MEDS: PRENATAL VITAMINS W/ FOLIC ACID TABLET (FP) PO SCH (10:02)
--- NOTE | 2019-11-09 11:45 | PN ---
[facility] CIWA - CIWA Score Nausea/Vomitin-No Nausea/No Vomiting Muscle Tremors: 1-None Visible, but Daisy Anxiety: 2 Agitation: 2 Paroxysmal Sweats: No Perspiration Orientation: 0-Oriented Tacttile Disturbances: 1-Very Mild Itch/Numbness Auditory Disturbances: 0-None Visual Disturbances: 0-None Headache: 1-Very Mild CIWA-Ar Total Score: 7 BHS Progress Note (SOAP) Subjective: alert,irritable,interrupted sleep,pain in the body Objective: 11/09/19 11:44 Vital Signs Temperature 97.5 F L 11/09/19 09:14 Pulse Rate 80 11/09/19 09:14 Respiratory Rate 18 11/09/19 09:14 Blood Pressure 155/78 11/09/19 09:14 O2 Sat by Pulse Oximetry (%) 11/09/19 11:44 k is 4.1 Assessment: 11/09/19 11:44 withdrawal symptom Plan: continue detox librium regimen,discharge in am
[2019-11-09] MEDS: THIAMINE HCL 100 MG TABLET (FP) PO SCH (21:06)
[2019-11-09] MEDS: QUEtiapine FUMARATE 200 MG TABLET PO SCH (21:06)
[2019-11-10] MEDS ORDERED: chlordiazePOXIDE HCL 10 MG CAPSULE PO ONE (05:00)
--- NOTE | 2019-11-10 09:12 | PN ---
[facility] CIWA - CIWA Score Nausea/Vomitin-No Nausea/No Vomiting Muscle Tremors: None Anxiety: 1-Mildly Anxious Agitation: 0-Normal Activity Paroxysmal Sweats: No Perspiration Orientation: 0-Oriented Tacttile Disturbances: 0-None Auditory Disturbances: 0-None Visual Disturbances: 0-None Headache: 0-None Present CIWA-Ar Total Score: 1 S Progress Note (SOAP) Subjective: alert,no complaint Objective: 11/10/19 09:11 Vital Signs Temperature 97.3 F L 11/09/19 20:50 Pulse Rate 83 11/09/19 20:50 Respiratory Rate 18 11/10/19 03:27 Blood Pressure 153/87 11/09/19 20:50 O2 Sat by Pulse Oximetry (%) Assessment: 11/10/19 09:11 detox completed,no withdrawal symptom Plan: dischrge today,follow up with after care program as arrangement
--- NOTE | 2019-11-10 09:13 | DS ---
[facility] Detox Discharge Summary Admission Date: 11/05/19 Discharge Date: 11/10/19 - History Present History: Alcohol Dependence, Cannabis Dependence, Cocaine Dependence Additional Comments: alert,oriented x 3 ambulation on the unit heart normal heart sound [id number] lung clear no abdominal pain stable for discharge follw up with [employer] [facility] as arrangement total discharge time 35 mins Pertinent Past History: bipolar disorder - Physical Exam Results Vital Signs: Vital Signs Temperature 97.3 F L 11/09/19 20:50 Pulse Rate 83 11/09/19 20:50 Respiratory Rate 18 11/10/19 03:27 Blood Pressure 153/87 11/09/19 20:50 O2 Sat by Pulse Oximetry (%) Pertinent Admission Physical Exam Findings: withdrawal signs and symptom Laboratory Last Values WBC 7.4 K/mm3 (4.0-10.0) 11/05/19 12:00 RBC 5.15 M/mm3 (4.00-5.60) 11/05/19 12:00 Hgb 15.2 GM/dL (11.7-16.9) 11/05/19 12:00 Hct 44.1 % (35.4-49) 11/05/19 12:00 MCV 85.7 fl (80-96) 11/05/19 12:00 MCH 29.4 pg (25.7-33.7) 11/05/19 12:00 MCHC 34.3 g/dl (32.0-35.9) 11/05/19 12:00 RDW 15.6 % (11.9-15.9) 11/05/19 12:00 Plt Count 291 K/MM3 (134-434) 11/05/19 12:00 MPV 7.6 fl (7.5-11.1) 11/05/19 12:00 Sodium 140 mmol/L (136-145) 11/05/19 12:00 Potassium 4.1 mmol/L (3.5-5.1) 11/08/19 07:30 Chloride 106 mmol/L (98-107) 11/05/19 12:00 Carbon Dioxide 26 mmol/L (21-32) 11/05/19 12:00 Anion Gap 7 MMOL/L (8-16) L 11/05/19 12:00 BUN 7.7 mg/dL (7-18) 11/05/19 12:00 Creatinine 1.0 mg/dL (0.55-1.3) 11/05/19 12:00 Est GFR (CKD-EPI)AfAm 101.98 11/05/19 12:00 Est GFR (CKD-EPI)NonAf 87.99 11/05/19 12:00 Random Glucose 101 mg/dL (74-106) 11/05/19 12:00 Calcium 8.8 mg/dL (8.5-10.1) 11/05/19 12:00 Total Bilirubin 0.6 mg/dL (0.2-1) 11/05/19 12:00 AST 14 U/L (15-37) L 11/05/19 12:00 ALT 29 U/L (13-61) 11/05/19 12:00 Alkaline Phosphatase 86 U/L (45-117) 11/05/19 12:00 Total Protein 7.1 g/dl (6.4-8.2) 11/05/19 12:00 Albumin 3.5 g/dl (3.4-5.0) 11/05/19 12:00 RPR Titer Nonreactive (NONREACTIVE) 11/05/19 12:00 - Treatment Hospital Course: Detox Protocol Followed, Detoxed Safely, Responded well, Discharged Condition Good, Rehab Referral Accepted Patient has Accepted a Re[facility] Referral to: [facility] - Medication Discharge Medications: Ambulatory Orders Quetiapine Fumarate [Seroquel -] 200 mg PO BID 05/04/19 - Diagnosis (1) Alcohol dependence with uncomplicated withdrawal Current Visit: Yes Status: Acute (2) Hypertension Current Visit: Yes Status: Acute (3) Hypokalemia Current Visit: Yes Status: Acute (4) Cannabis dependence, uncomplicated Current Visit: Yes Status: Chronic (5) Cocaine dependence Current Visit: Yes Status: Chronic Qualifiers: Substance use status: uncomplicated Qualified Code(s): F14.20 - Cocaine dependence, uncomplicated (6) Nicotine dependence Current Visit: Yes Status: Chronic Qualifiers: Nicotine product type: cigarettes Substance use status: uncomplicated Qualified Code(s): F17.210 - Nicotine dependence, cigarettes, uncomplicated (7) Syncope Current Visit: No Status: Active - AMA Did Patient Leave Against Medical Advice: No
[2019-11-10] MEDS: PRENATAL VITAMINS W/ FOLIC ACID TABLET (FP) PO SCH (09:16)
[2019-11-10] MEDS: NICOTINE 14 MG/24 HOURS TOPICAL PATCH TD SCH (09:16)
[2019-11-10] MEDS: QUEtiapine FUMARATE 100 MG TABLET (FP) PO SCH (09:16)
[2019-11-10] MEDS: amLODIPine BESYLATE 5 MG TABLET (FP) PO SCH (09:16)
[2019-11-10] MEDS: AMMONIUM LACTATE 12% LOTION 225 GM BOTTLE TP SCH (09:16)
--- NOTE | 2019-11-10 09:29 | PN ---
[facility] Progress Note Note: Patient is discharged today. Script for 30 day supply of Seroquel 100 mg/day & 200 mg/hs is electronically transmitted to [facility] at [address] [place] [id number]
[2019-11-10 09:57] VITALS: BP 130/91; PULSE 91; TEMP 99
== END 2019-11-10 09:51 | disposition other institution (70) | DRG 774 ==
LOC: YASAS 10:26 → Y6N 11:24
PROVIDERS: ADMIT Allergy & Immunology; ATTEND Allergy & Immunology
PROC: HZ2ZZZZ Detoxification Services for Substance Abuse Treatment (ICD-10-PCS; principal; 2019-11-05)
DX: F10.230 Alcohol dependence with withdrawal, uncomplicated (principal); F14.20 Cocaine dependence, uncomplicated; F12.20 Cannabis dependence, uncomplicated; F17.210 Nicotine dependence, cigarettes, uncomplicated; F19.24 Other psychoactive substance dependence with psychoactive substance-induced mood disorder; F32.9 Major depressive disorder, single episode, unspecified; I10 Essential (primary) hypertension; E87.6 Hypokalemia; G47.00 Insomnia, unspecified; Z91.013 Allergy to seafood; Z91.018 Allergy to other foods
CPT/HCPCS: 36415; 80053; 84132; 85027; 86593

== ENCOUNTER 2021-09-05 13:56 | Inpatient (IN) | payer OTHER ==
[2021-09-05] MEDS ORDERED: BISMUTH SUBSALICYLATE 262 MG/15 ML BTL PO PRN (15:09)
[2021-09-05] MEDS ORDERED: METHOCARBAMOL 500 MG TABLET PO PRN (15:09)
[2021-09-05] MEDS ORDERED: MAGNESIUM HYDROX 2400MG/30ML ORAL SUSPENSION 30 ML CUP PO PRN (15:09)
[2021-09-05] MEDS ORDERED: MAG HYDROX/AL HYDROX/SIMETH 30 ML UNIT-DOSE CUP PO PRN (15:09)
[2021-09-05] MEDS ORDERED: MENTHOL/PHENOL 1 EACH UD MM PRN (15:09)
[2021-09-05] MEDS ORDERED: IBUPROFEN 400 MG TABLET (FP) PO PRN (15:09)
[2021-09-05] MEDS ORDERED: ACETAMINOPHEN 325 MG TABLET (FP) PO PRN ×2 (15:09)
[2021-09-05] MEDS ORDERED: MAGNESIUM CITRATE 300 ML BOTTLE PO PRN (15:09)
[2021-09-05] MEDS ORDERED: ONDANSETRON *ODT* 4 MG TABLET SL PRN (15:09)
[2021-09-05 15:37] VITALS: BMI 32.3
[2021-09-05] MEDS: hydrOXYzine PAMOATE 25 MG CAPSULE (FP) PO SCH ×2 (18:27→22:28)
[2021-09-05] MEDS: PRENATAL VITAMINS W/ FOLIC ACID TABLET (FP) PO SCH (18:27)
[2021-09-05] MEDS: THIAMINE HCL 100 MG TABLET (FP) PO SCH (22:27)
[2021-09-05] MEDS: MELATONIN 5 MG TABLETS PO SCH (22:28)
[2021-09-06] MEDS: hydrOXYzine PAMOATE 25 MG CAPSULE (FP) PO SCH ×6 (07:03→22:00)
[2021-09-06 09:53] LABS: BASO % 0.6 % (0-2.0); EOS % 1.1 % (0-4.5); HEMATOCRIT 41.9 % (35.4-49); HEMOGLOBIN 14.2 GM/dL (11.7-16.9); LYMPH % 29.7 % (8-40); MCH 29.2 pg (25.7-33.7); MEAN CELL VOLUME 86.1 fl (80-96); MONO % 10.3 % (3.8-10.2); NEUT % 58.3 % (42.8-82.8); PLATELET COUNT 288 10^3/uL (134-434); RBC 4.86 M/mm3 (4.00-5.60); RDW 15.7 % (11.9-15.9); WHITE BLOOD COUNT 4.6 K/mm3 (4.0-10.0)
[2021-09-06 10:03] LABS: CALCIUM 8.6 mg/dL (8.5-10.1)
[2021-09-06 10:04] LABS: ALBUMIN 2.9 g/dl (3.4-5.0)
[2021-09-06 10:07] LABS: BILIRUBIN,TOTAL 0.3 mg/dL (0.2-1); CREATININE 1.1 mg/dL (0.55-1.3)
[2021-09-06 10:08] LABS: TOT PROT 6.1 g/dl (6.4-8.2)
[2021-09-06 10:09] LABS: BLOOD UREA NITROGEN 17.4 mg/dL (7-18)
[2021-09-06] MEDS: PRENATAL VITAMINS W/ FOLIC ACID TABLET (FP) PO SCH (10:11)
[2021-09-06] MEDS: amLODIPine BESYLATE 5 MG TABLET (FP) PO SCH (10:12)
[2021-09-06] MEDS: QUEtiapine FUMARATE 100 MG TABLET (FP) PO SCH (12:45)
[2021-09-06] MEDS ORDERED: QUEtiapine FUMARATE 200 MG TABLET PO SCH (22:00)
[2021-09-06] MEDS: THIAMINE HCL 100 MG TABLET (FP) PO SCH (22:00)
[2021-09-06] MEDS: MELATONIN 5 MG TABLETS PO SCH (22:00)
[2021-09-07] MEDS: hydrOXYzine PAMOATE 25 MG CAPSULE (FP) PO SCH ×3 (05:51→15:06)
[2021-09-07] MEDS: PRENATAL VITAMINS W/ FOLIC ACID TABLET (FP) PO SCH (10:06)
[2021-09-07] MEDS: amLODIPine BESYLATE 5 MG TABLET (FP) PO SCH (10:07)
[2021-09-07] MEDS: QUEtiapine FUMARATE 100 MG TABLET (FP) PO SCH (10:07)
[2021-09-07 17:05] VITALS: BP 150/71; PULSE 68; TEMP 98.4
== END 2021-09-07 17:53 | disposition other institution (70) | DRG 774 ==
LOC: YASAS 13:56 → Y3N 16:03
PROVIDERS: ADMIT Allergy & Immunology; ATTEND Allergy & Immunology
PROC: HZ2ZZZZ Detoxification Services for Substance Abuse Treatment (ICD-10-PCS; principal; 2021-09-05)
DX: F10.230 Alcohol dependence with withdrawal, uncomplicated (principal); F14.20 Cocaine dependence, uncomplicated; F12.20 Cannabis dependence, uncomplicated; F17.210 Nicotine dependence, cigarettes, uncomplicated; F19.282 Other psychoactive substance dependence with psychoactive substance-induced sleep disorder; F31.9 Bipolar disorder, unspecified; I10 Essential (primary) hypertension; Z91.013 Allergy to seafood; Z91.018 Allergy to other foods; Z87.828 Personal history of other (healed) physical injury and trauma; Z56.0 Unemployment, unspecified
CPT/HCPCS: 36415; 80053; 85025; 86780; C9803; U0003; U0005

== ENCOUNTER 2021-09-07 18:15 | Inpatient (IN) | payer OTHER ==
[2021-09-07] MEDS ORDERED: MAGNESIUM CITRATE 300 ML BOTTLE PO PRN (21:15)
[2021-09-07] MEDS ORDERED: P-EPHED 60MG/TRIPROLIDI 2.5MG TABLET PO PRN (21:15)
[2021-09-07] MEDS ORDERED: MAG HYDROX/AL HYDROX/SIMETH 30 ML UNIT-DOSE CUP PO PRN (21:15)
[2021-09-07] MEDS ORDERED: guaiFENesin 200 MG/10 ML 10 ML UNIT-DOSE CUPS PO PRN (21:15)
[2021-09-07] MEDS ORDERED: hydrOXYzine PAMOATE 25 MG CAPSULE (FP) PO PRN (21:15)
[2021-09-07] MEDS ORDERED: MAGNESIUM HYDROX 2400MG/30ML ORAL SUSPENSION 30 ML CUP PO PRN (21:15)
[2021-09-07] MEDS ORDERED: LOPERAMIDE HCL 2 MG CAPSULE PO PRN (21:15)
[2021-09-07] MEDS ORDERED: IBUPROFEN 400 MG TABLET (FP) PO PRN (21:15)
[2021-09-07] MEDS ORDERED: MENTHOL/PHENOL 1 EACH UD MM PRN (21:15)
[2021-09-07] MEDS ORDERED: ACETAMINOPHEN 325 MG TABLET (FP) PO PRN (21:15)
[2021-09-07] MEDS: THIAMINE HCL 100 MG TABLET (FP) PO SCH (21:35)
[2021-09-07] MEDS: MELATONIN 5 MG TABLETS PO SCH (21:35)
[2021-09-07] MEDS: QUEtiapine FUMARATE 200 MG TABLET PO SCH (21:35)
[2021-09-08] MEDS: amLODIPine BESYLATE 5 MG TABLET (FP) PO SCH (10:32)
[2021-09-08] MEDS: PRENATAL VITAMINS W/ FOLIC ACID TABLET (FP) PO SCH (10:32)
[2021-09-08] MEDS: MELATONIN 5 MG TABLETS PO SCH (21:17)
[2021-09-08] MEDS: QUEtiapine FUMARATE 200 MG TABLET PO SCH (21:17)
[2021-09-08] MEDS: THIAMINE HCL 100 MG TABLET (FP) PO SCH (21:17)
[2021-09-09] MEDS: QUEtiapine FUMARATE 100 MG TABLET (FP) PO SCH (10:09)
[2021-09-09] MEDS: PRENATAL VITAMINS W/ FOLIC ACID TABLET (FP) PO SCH (10:09)
[2021-09-09] MEDS: amLODIPine BESYLATE 5 MG TABLET (FP) PO SCH (10:09)
[2021-09-09] MEDS: THIAMINE HCL 100 MG TABLET (FP) PO SCH (21:26)
[2021-09-09] MEDS: QUEtiapine FUMARATE 200 MG TABLET PO SCH (21:26)
[2021-09-09] MEDS: MELATONIN 5 MG TABLETS PO SCH (21:26)
[2021-09-10] MEDS: amLODIPine BESYLATE 5 MG TABLET (FP) PO SCH (10:13)
[2021-09-10] MEDS: PRENATAL VITAMINS W/ FOLIC ACID TABLET (FP) PO SCH (10:13)
[2021-09-10] MEDS: QUEtiapine FUMARATE 100 MG TABLET (FP) PO SCH (10:14)
[2021-09-10] MEDS: COLLOIDAL OATMEAL 1 BAR EACH TP PRN (18:03)
[2021-09-10] MEDS: QUEtiapine FUMARATE 200 MG TABLET PO SCH (21:27)
[2021-09-10] MEDS: THIAMINE HCL 100 MG TABLET (FP) PO SCH (21:28)
[2021-09-10] MEDS: MELATONIN 5 MG TABLETS PO SCH (21:28)
[2021-09-11] MEDS: PRENATAL VITAMINS W/ FOLIC ACID TABLET (FP) PO SCH (10:11)
[2021-09-11] MEDS: amLODIPine BESYLATE 5 MG TABLET (FP) PO SCH (10:12)
[2021-09-11] MEDS: QUEtiapine FUMARATE 100 MG TABLET (FP) PO SCH (10:13)
[2021-09-11] MEDS ORDERED: AMMONIUM LACTATE 12% LOTION 225 GM BOTTLE TP PRN (12:47)
[2021-09-11] MEDS: QUEtiapine FUMARATE 200 MG TABLET PO SCH (21:33)
[2021-09-11] MEDS: THIAMINE HCL 100 MG TABLET (FP) PO SCH (21:34)
[2021-09-11] MEDS: MELATONIN 5 MG TABLETS PO SCH (21:34)
[2021-09-12] MEDS: amLODIPine BESYLATE 5 MG TABLET (FP) PO SCH (10:09)
[2021-09-12] MEDS: QUEtiapine FUMARATE 100 MG TABLET (FP) PO SCH (10:09)
[2021-09-12] MEDS: PRENATAL VITAMINS W/ FOLIC ACID TABLET (FP) PO SCH (10:09)
[2021-09-12] MEDS: QUEtiapine FUMARATE 200 MG TABLET PO SCH (21:10)
[2021-09-12] MEDS: MELATONIN 5 MG TABLETS PO SCH (21:10)
[2021-09-12] MEDS: THIAMINE HCL 100 MG TABLET (FP) PO SCH (21:10)
[2021-09-13] MEDS: QUEtiapine FUMARATE 100 MG TABLET (FP) PO SCH (10:25)
[2021-09-13] MEDS: PRENATAL VITAMINS W/ FOLIC ACID TABLET (FP) PO SCH (10:25)
[2021-09-13] MEDS: amLODIPine BESYLATE 5 MG TABLET (FP) PO SCH (10:26)
[2021-09-13] MEDS: MELATONIN 5 MG TABLETS PO SCH (21:37)
[2021-09-13] MEDS: QUEtiapine FUMARATE 200 MG TABLET PO SCH (21:37)
[2021-09-13] MEDS: THIAMINE HCL 100 MG TABLET (FP) PO SCH (21:37)
[2021-09-14] MEDS: PRENATAL VITAMINS W/ FOLIC ACID TABLET (FP) PO SCH (10:00)
[2021-09-14] MEDS: amLODIPine BESYLATE 5 MG TABLET (FP) PO SCH (10:00)
[2021-09-14] MEDS: QUEtiapine FUMARATE 100 MG TABLET (FP) PO SCH (10:00)
[2021-09-14] MEDS: QUEtiapine FUMARATE 200 MG TABLET PO SCH (21:31)
[2021-09-14] MEDS: THIAMINE HCL 100 MG TABLET (FP) PO SCH (21:39)
[2021-09-14] MEDS: MELATONIN 5 MG TABLETS PO SCH (21:39)
[2021-09-15] MEDS: QUEtiapine FUMARATE 100 MG TABLET (FP) PO SCH (10:00)
[2021-09-15] MEDS: amLODIPine BESYLATE 5 MG TABLET (FP) PO SCH (10:00)
[2021-09-15] MEDS: PRENATAL VITAMINS W/ FOLIC ACID TABLET (FP) PO SCH (10:00)
[2021-09-15] MEDS: MELATONIN 5 MG TABLETS PO SCH (21:40)
[2021-09-15] MEDS: THIAMINE HCL 100 MG TABLET (FP) PO SCH (21:40)
[2021-09-15] MEDS: QUEtiapine FUMARATE 200 MG TABLET PO SCH (21:40)
[2021-09-16] MEDS: amLODIPine BESYLATE 5 MG TABLET (FP) PO SCH (09:55)
[2021-09-16] MEDS: QUEtiapine FUMARATE 100 MG TABLET (FP) PO SCH (09:55)
[2021-09-16] MEDS: PRENATAL VITAMINS W/ FOLIC ACID TABLET (FP) PO SCH (09:55)
[2021-09-16] MEDS: THIAMINE HCL 100 MG TABLET (FP) PO SCH (21:17)
[2021-09-16] MEDS: QUEtiapine FUMARATE 200 MG TABLET PO SCH (21:17)
[2021-09-16] MEDS: MELATONIN 5 MG TABLETS PO SCH (21:17)
[2021-09-17] MEDS: PRENATAL VITAMINS W/ FOLIC ACID TABLET (FP) PO SCH (09:30)
[2021-09-17] MEDS: amLODIPine BESYLATE 5 MG TABLET (FP) PO SCH (09:31)
[2021-09-17] MEDS: QUEtiapine FUMARATE 100 MG TABLET (FP) PO SCH (09:31)
[2021-09-17] MEDS: COLLOIDAL OATMEAL 1 BAR EACH TP PRN (09:32)
[2021-09-17 16:47] LABS: PH,URINE 6.5 (5.0-8.0); URINE APPEARANCE CLEAR; URINE BILIRUBIN NEGATIVE (NEGATIVE); URINE COLOR YELLOW; URINE GLUCOSE (UA) NEGATIVE (NEGATIVE); URINE KETONE NEGATIVE (NEGATIVE); URINE LEUK ESTERASE NEGATIVE (NEGATIVE); URINE NITRITE NEGATIVE (NEGATIVE); URINE PROTEIN NEGATIVE (NEGATIVE); URINE UROBILINOGEN 0.2 mg/dL (0.2-1.0)
[2021-09-17] MEDS: QUEtiapine FUMARATE 200 MG TABLET PO SCH (21:25)
[2021-09-17] MEDS: THIAMINE HCL 100 MG TABLET (FP) PO SCH (21:25)
[2021-09-17] MEDS: MELATONIN 5 MG TABLETS PO SCH (21:26)
[2021-09-18] MEDS: PRENATAL VITAMINS W/ FOLIC ACID TABLET (FP) PO SCH (10:28)
[2021-09-18] MEDS: QUEtiapine FUMARATE 100 MG TABLET (FP) PO SCH (10:28)
[2021-09-18] MEDS: amLODIPine BESYLATE 10 MG TABLET (FP) PO SCH (10:28)
[2021-09-18] MEDS: QUEtiapine FUMARATE 200 MG TABLET PO SCH (21:16)
[2021-09-18] MEDS: MELATONIN 5 MG TABLETS PO SCH (21:53)
[2021-09-18] MEDS: THIAMINE HCL 100 MG TABLET (FP) PO SCH (21:53)
[2021-09-19] MEDS: amLODIPine BESYLATE 10 MG TABLET (FP) PO SCH (09:41)
[2021-09-19] MEDS: PRENATAL VITAMINS W/ FOLIC ACID TABLET (FP) PO SCH (09:41)
[2021-09-19] MEDS: QUEtiapine FUMARATE 100 MG TABLET (FP) PO SCH (09:41)
[2021-09-19] MEDS: QUEtiapine FUMARATE 200 MG TABLET PO SCH (21:13)
[2021-09-19] MEDS: THIAMINE HCL 100 MG TABLET (FP) PO SCH (21:14)
[2021-09-19] MEDS: MELATONIN 5 MG TABLETS PO SCH (21:14)
[2021-09-20] MEDS: amLODIPine BESYLATE 10 MG TABLET (FP) PO SCH (10:06)
[2021-09-20] MEDS: PRENATAL VITAMINS W/ FOLIC ACID TABLET (FP) PO SCH (10:06)
[2021-09-20] MEDS: QUEtiapine FUMARATE 100 MG TABLET (FP) PO SCH (10:06)
[2021-09-20] MEDS: QUEtiapine FUMARATE 200 MG TABLET PO SCH (21:41)
[2021-09-20] MEDS: MELATONIN 5 MG TABLETS PO SCH (23:05)
[2021-09-20] MEDS: THIAMINE HCL 100 MG TABLET (FP) PO SCH (23:05)
[2021-09-21 08:26] VITALS: TEMP 97.8
[2021-09-21 09:53] VITALS: BP 157/83; PULSE 85
[2021-09-21] MEDS: PRENATAL VITAMINS W/ FOLIC ACID TABLET (FP) PO SCH (10:12)
[2021-09-21] MEDS: QUEtiapine FUMARATE 100 MG TABLET (FP) PO SCH (10:12)
[2021-09-21] MEDS: amLODIPine BESYLATE 10 MG TABLET (FP) PO SCH (10:12)
== END 2021-09-21 10:20 | disposition home or self-care (01) | DRG 772 ==
LOC: YASAS 18:15 → Y5N 18:18
PROVIDERS: ADMIT Allergy & Immunology; ATTEND Allergy & Immunology
PROC: HZ42ZZZ Group Counseling for Substance Abuse Treatment, Cognitive-Behavioral (ICD-10-PCS; principal; 2021-09-07)
DX: F10.20 Alcohol dependence, uncomplicated (principal); F14.20 Cocaine dependence, uncomplicated; F12.20 Cannabis dependence, uncomplicated; F17.210 Nicotine dependence, cigarettes, uncomplicated; F31.9 Bipolar disorder, unspecified; F39 Unspecified mood [affective] disorder; G47.00 Insomnia, unspecified; I10 Essential (primary) hypertension; L85.3 Xerosis cutis; E66.9 Obesity, unspecified; Z68.33 Body mass index [BMI] 33.0-33.9, adult; Z91.013 Allergy to seafood; Z91.018 Allergy to other foods
CPT/HCPCS: 81003; C9803; U0003; U0005

== ENCOUNTER 2022-01-30 11:26 | Inpatient (IN) | payer OTHER ==
[2022-01-30 11:54] VITALS: BMI 35.4
[2022-01-30] MEDS ORDERED: MAGNESIUM HYDROX 2400MG/30ML ORAL SUSPENSION 30 ML CUP PO PRN (12:22)
[2022-01-30] MEDS ORDERED: BISMUTH SUBSALICYLATE 524 MG/30 ML PO PRN (12:22)
[2022-01-30] MEDS ORDERED: IBUPROFEN 400 MG TABLET (FP) PO PRN (12:22)
[2022-01-30] MEDS ORDERED: MAGNESIUM CITRATE 300 ML BOTTLE PO PRN (12:22)
[2022-01-30] MEDS ORDERED: DICYCLOMINE HCL 10 MG CAPSULE PO PRN (12:22)
[2022-01-30] MEDS ORDERED: LOPERAMIDE HCL 2 MG CAPSULE PO PRN (12:22)
[2022-01-30] MEDS ORDERED: METHOCARBAMOL 500 MG TABLET PO PRN (12:22)
[2022-01-30] MEDS ORDERED: ACETAMINOPHEN 325 MG TABLET (FP) PO PRN ×2 (12:22)
[2022-01-30] MEDS ORDERED: MAG HYDROX/AL HYDROX/SIMETH 30 ML UNIT-DOSE CUP PO PRN (12:22)
[2022-01-30] MEDS ORDERED: chlordiazePOXIDE HCL 25 MG CAPSULE PO PRN (12:22)
[2022-01-30] MEDS ORDERED: BENZOCAINE/MENTHOL (CHLORASEPTIC ) LOZENGE MM PRN (12:22)
[2022-01-30] MEDS ORDERED: ONDANSETRON *ODT* 4 MG TABLET SL PRN (12:22)
[2022-01-30] MEDS: hydrOXYzine PAMOATE 25 MG CAPSULE (FP) PO SCH ×3 (13:36→22:57)
[2022-01-30] MEDS: PRENATAL VITAMINS W/ FOLIC ACID TABLET (FP) PO SCH (13:36)
[2022-01-30] MEDS: amLODIPine BESYLATE 10 MG TABLET (FP) PO SCH (15:30)
[2022-01-30 15:44] LABS: HEMATOCRIT 39.7 % (35.4-49); HEMOGLOBIN 13.6 GM/dL (11.7-16.9); MCH 29.1 pg (25.7-33.7); MCHC 34.2 g/dl (32.0-35.9); MEAN CELL VOLUME 85.1 fl (80-96); MEAN PLT VOLUME 7.2 fl (7.5-11.1); PLATELET COUNT 258 10^3/uL (134-434); RBC 4.66 M/mm3 (4.00-5.60); RDW 15.3 % (11.9-15.9); WHITE BLOOD COUNT 5.6 K/mm3 (4.0-10.0)
[2022-01-30 15:54] LABS: CALCIUM 8.8 mg/dL (8.5-10.1)
[2022-01-30 15:55] LABS: ALBUMIN 3.6 g/dl (3.4-5.0); BLOOD UREA NITROGEN 15.2 mg/dL (7-18)
[2022-01-30 15:58] LABS: CREATININE 1.2 mg/dL (0.55-1.3)
[2022-01-30 15:59] LABS: TOT PROT 6.7 g/dl (6.4-8.2)
[2022-01-30 16:00] LABS: BILIRUBIN,TOTAL 0.6 mg/dL (0.2-1)
[2022-01-30] MEDS: chlordiazePOXIDE HCL 25 MG CAPSULE PO SCH ×2 (17:44→22:57)
[2022-01-30] MEDS ORDERED: QUEtiapine FUMARATE 100 MG TABLET (FP) PO ONE (22:31)
[2022-01-30] MEDS: THIAMINE HCL 100 MG TABLET (FP) PO SCH (22:57)
[2022-01-30] MEDS: MELATONIN 5 MG TABLETS PO SCH (22:57)
[2022-01-31] MEDS: chlordiazePOXIDE HCL 25 MG CAPSULE PO SCH ×4 (06:52→22:21)
[2022-01-31] MEDS: hydrOXYzine PAMOATE 25 MG CAPSULE (FP) PO SCH ×5 (06:52→22:20)
[2022-01-31] MEDS: PRENATAL VITAMINS W/ FOLIC ACID TABLET (FP) PO SCH (10:09)
[2022-01-31] MEDS: amLODIPine BESYLATE 10 MG TABLET (FP) PO SCH (10:09)
[2022-01-31] MEDS: QUEtiapine FUMARATE 100 MG TABLET (FP) PO SCH (11:32)
[2022-01-31] MEDS: MELATONIN 5 MG TABLETS PO SCH (22:20)
[2022-01-31] MEDS: THIAMINE HCL 100 MG TABLET (FP) PO SCH (22:20)
[2022-01-31] MEDS: QUEtiapine FUMARATE 200 MG TABLET PO SCH (22:21)
[2022-02-01] MEDS: chlordiazePOXIDE HCL 25 MG CAPSULE PO SCH ×4 (07:13→22:01)
[2022-02-01] MEDS: hydrOXYzine PAMOATE 25 MG CAPSULE (FP) PO SCH ×5 (07:13→22:00)
[2022-02-01] MEDS ORDERED: COLLOIDAL OATMEAL 1 BAR EACH TP PRN (09:22)
[2022-02-01] MEDS: QUEtiapine FUMARATE 100 MG TABLET (FP) PO SCH (10:42)
[2022-02-01] MEDS: PRENATAL VITAMINS W/ FOLIC ACID TABLET (FP) PO SCH (10:42)
[2022-02-01] MEDS: amLODIPine BESYLATE 10 MG TABLET (FP) PO SCH (10:43)
[2022-02-01] MEDS: QUEtiapine FUMARATE 200 MG TABLET PO SCH (22:00)
[2022-02-01] MEDS: THIAMINE HCL 100 MG TABLET (FP) PO SCH (22:00)
[2022-02-01] MEDS: MELATONIN 5 MG TABLETS PO SCH (22:02)
[2022-02-02] MEDS ORDERED: chlordiazePOXIDE HCL 10 MG CAPSULE PO PRN
[2022-02-02 00:06] LABS: SARS-CoV-2 NAA Not Detected (Not Detected)
[2022-02-02] MEDS: chlordiazePOXIDE HCL 10 MG CAPSULE PO SCH ×4 (06:38→22:20)
[2022-02-02] MEDS: hydrOXYzine PAMOATE 25 MG CAPSULE (FP) PO SCH ×5 (06:38→22:20)
[2022-02-02] MEDS: amLODIPine BESYLATE 10 MG TABLET (FP) PO SCH (10:03)
[2022-02-02] MEDS: QUEtiapine FUMARATE 100 MG TABLET (FP) PO SCH (10:03)
[2022-02-02] MEDS: PRENATAL VITAMINS W/ FOLIC ACID TABLET (FP) PO SCH (10:04)
[2022-02-02] MEDS: THIAMINE HCL 100 MG TABLET (FP) PO SCH (22:20)
[2022-02-02] MEDS: QUEtiapine FUMARATE 200 MG TABLET PO SCH (22:20)
[2022-02-02] MEDS: MELATONIN 5 MG TABLETS PO SCH (22:21)
[2022-02-03] MEDS: chlordiazePOXIDE HCL 10 MG CAPSULE PO SCH ×2 (05:02→17:25)
[2022-02-03] MEDS: hydrOXYzine PAMOATE 25 MG CAPSULE (FP) PO SCH ×5 (05:02→22:10)
[2022-02-03] MEDS: amLODIPine BESYLATE 10 MG TABLET (FP) PO SCH (10:12)
[2022-02-03] MEDS: QUEtiapine FUMARATE 100 MG TABLET (FP) PO SCH (10:12)
[2022-02-03] MEDS: PRENATAL VITAMINS W/ FOLIC ACID TABLET (FP) PO SCH (10:12)
[2022-02-03] MEDS: THIAMINE HCL 100 MG TABLET (FP) PO SCH (22:10)
[2022-02-03] MEDS: MELATONIN 5 MG TABLETS PO SCH (22:10)
[2022-02-03] MEDS: QUEtiapine FUMARATE 200 MG TABLET PO SCH (22:10)
[2022-02-04] MEDS ORDERED: chlordiazePOXIDE HCL 10 MG CAPSULE PO ONE (05:00)
[2022-02-04] MEDS: hydrOXYzine PAMOATE 25 MG CAPSULE (FP) PO SCH ×2 (07:06→10:06)
[2022-02-04 08:40] VITALS: BP 136/99; PULSE 68; TEMP 97.1
[2022-02-04] MEDS: PRENATAL VITAMINS W/ FOLIC ACID TABLET (FP) PO SCH (10:06)
[2022-02-04] MEDS: QUEtiapine FUMARATE 100 MG TABLET (FP) PO SCH (10:06)
[2022-02-04] MEDS: amLODIPine BESYLATE 10 MG TABLET (FP) PO SCH (10:06)
== END 2022-02-04 11:15 | disposition other institution (70) | DRG 774 ==
LOC: YASAS 11:26 → Y3N 12:32 → Y6N 02-02 10:29
PROVIDERS: ADMIT Allergy & Immunology; ATTEND Surgery
PROC: HZ2ZZZZ Detoxification Services for Substance Abuse Treatment (ICD-10-PCS; principal; 2022-01-30)
DX: F10.230 Alcohol dependence with withdrawal, uncomplicated (principal); F14.20 Cocaine dependence, uncomplicated; F12.20 Cannabis dependence, uncomplicated; F19.282 Other psychoactive substance dependence with psychoactive substance-induced sleep disorder; F31.9 Bipolar disorder, unspecified; F41.9 Anxiety disorder, unspecified; G47.00 Insomnia, unspecified; E66.9 Obesity, unspecified; Z68.35 Body mass index [BMI] 35.0-35.9, adult; Z87.891 Personal history of nicotine dependence; Z91.018 Allergy to other foods; Z91.013 Allergy to seafood
CPT/HCPCS: 36415; 80053; 85027; 86780; C9803-CS; U0003; U0005

== ENCOUNTER 2022-02-04 11:10 | Inpatient (IN) | payer OTHER ==
[2022-02-04] MEDS ORDERED: P-EPHED 60MG/TRIPROLIDI 2.5MG TABLET PO PRN (11:59)
[2022-02-04] MEDS ORDERED: hydrOXYzine PAMOATE 25 MG CAPSULE (FP) PO PRN (11:59)
[2022-02-04] MEDS ORDERED: LOPERAMIDE HCL 2 MG CAPSULE PO PRN (11:59)
[2022-02-04] MEDS ORDERED: MAG HYDROX/AL HYDROX/SIMETH 30 ML UNIT-DOSE CUP PO PRN (11:59)
[2022-02-04] MEDS ORDERED: IBUPROFEN 400 MG TABLET (FP) PO PRN (11:59)
[2022-02-04] MEDS ORDERED: ACETAMINOPHEN 325 MG TABLET (FP) PO PRN (11:59)
[2022-02-04] MEDS ORDERED: MAGNESIUM HYDROX 2400MG/30ML ORAL SUSPENSION 30 ML CUP PO PRN (11:59)
[2022-02-04] MEDS ORDERED: guaiFENesin 200 MG/10 ML 10 ML UNIT-DOSE CUPS PO PRN (11:59)
[2022-02-04] MEDS ORDERED: MAGNESIUM CITRATE 300 ML BOTTLE PO PRN (11:59)
[2022-02-04] MEDS ORDERED: BENZOCAINE/MENTHOL (CHLORASEPTIC ) LOZENGE MM PRN (11:59)
[2022-02-04] MEDS: QUEtiapine FUMARATE 200 MG TABLET PO SCH (21:14)
[2022-02-04] MEDS: THIAMINE HCL 100 MG TABLET (FP) PO SCH (21:14)
[2022-02-04] MEDS: MELATONIN 5 MG TABLETS PO SCH (21:14)
[2022-02-05] MEDS ORDERED: AMMONIUM LACTATE 12% LOTION 225 GM BOTTLE TP PRN (09:14)
[2022-02-05] MEDS: amLODIPine BESYLATE 10 MG TABLET (FP) PO SCH (09:31)
[2022-02-05] MEDS: QUEtiapine FUMARATE 100 MG TABLET (FP) PO SCH (09:31)
[2022-02-05] MEDS: PRENATAL VITAMINS W/ FOLIC ACID TABLET (FP) PO SCH (09:31)
[2022-02-05] MEDS: THIAMINE HCL 100 MG TABLET (FP) PO SCH (21:42)
[2022-02-05] MEDS: MELATONIN 5 MG TABLETS PO SCH (21:42)
[2022-02-05] MEDS: QUEtiapine FUMARATE 200 MG TABLET PO SCH (21:42)
[2022-02-06] MEDS: PRENATAL VITAMINS W/ FOLIC ACID TABLET (FP) PO SCH (10:10)
[2022-02-06] MEDS: QUEtiapine FUMARATE 100 MG TABLET (FP) PO SCH (10:10)
[2022-02-06] MEDS: amLODIPine BESYLATE 10 MG TABLET (FP) PO SCH (10:10)
[2022-02-06] MEDS: THIAMINE HCL 100 MG TABLET (FP) PO SCH (21:11)
[2022-02-06] MEDS: QUEtiapine FUMARATE 200 MG TABLET PO SCH (21:11)
[2022-02-06] MEDS: MELATONIN 5 MG TABLETS PO SCH (21:59)
[2022-02-07] MEDS: PRENATAL VITAMINS W/ FOLIC ACID TABLET (FP) PO SCH (10:19)
[2022-02-07] MEDS: QUEtiapine FUMARATE 100 MG TABLET (FP) PO SCH (10:19)
[2022-02-07] MEDS: amLODIPine BESYLATE 10 MG TABLET (FP) PO SCH (10:19)
[2022-02-07] MEDS: QUEtiapine FUMARATE 200 MG TABLET PO SCH (21:06)
[2022-02-07] MEDS: THIAMINE HCL 100 MG TABLET (FP) PO SCH (21:06)
[2022-02-07] MEDS: MELATONIN 5 MG TABLETS PO SCH (21:07)
[2022-02-08] MEDS: QUEtiapine FUMARATE 100 MG TABLET (FP) PO SCH (10:23)
[2022-02-08] MEDS: PRENATAL VITAMINS W/ FOLIC ACID TABLET (FP) PO SCH (10:23)
[2022-02-08] MEDS: amLODIPine BESYLATE 10 MG TABLET (FP) PO SCH (10:23)
[2022-02-08] MEDS: THIAMINE HCL 100 MG TABLET (FP) PO SCH (21:33)
[2022-02-08] MEDS: MELATONIN 5 MG TABLETS PO SCH (21:33)
[2022-02-08] MEDS: QUEtiapine FUMARATE 200 MG TABLET PO SCH (21:33)
[2022-02-09] MEDS: PRENATAL VITAMINS W/ FOLIC ACID TABLET (FP) PO SCH (09:35)
[2022-02-09] MEDS: amLODIPine BESYLATE 10 MG TABLET (FP) PO SCH (09:35)
[2022-02-09] MEDS: QUEtiapine FUMARATE 100 MG TABLET (FP) PO SCH (09:35)
[2022-02-09] MEDS: QUEtiapine FUMARATE 200 MG TABLET PO SCH (21:21)
[2022-02-09] MEDS: THIAMINE HCL 100 MG TABLET (FP) PO SCH (21:21)
[2022-02-09] MEDS: MELATONIN 5 MG TABLETS PO SCH (21:22)
[2022-02-10] MEDS: amLODIPine BESYLATE 10 MG TABLET (FP) PO SCH (09:25)
[2022-02-10] MEDS: PRENATAL VITAMINS W/ FOLIC ACID TABLET (FP) PO SCH (09:25)
[2022-02-10] MEDS: QUEtiapine FUMARATE 100 MG TABLET (FP) PO SCH (09:25)
[2022-02-10] MEDS ORDERED: COLLOIDAL OATMEAL 1 BAR EACH TP PRN (10:42)
[2022-02-10] MEDS: QUEtiapine FUMARATE 200 MG TABLET PO SCH (21:35)
[2022-02-10] MEDS: MELATONIN 5 MG TABLETS PO SCH (21:35)
[2022-02-10] MEDS: THIAMINE HCL 100 MG TABLET (FP) PO SCH (21:35)
[2022-02-11] MEDS: amLODIPine BESYLATE 10 MG TABLET (FP) PO SCH (10:03)
[2022-02-11] MEDS: QUEtiapine FUMARATE 100 MG TABLET (FP) PO SCH (10:03)
[2022-02-11] MEDS: PRENATAL VITAMINS W/ FOLIC ACID TABLET (FP) PO SCH (10:03)
[2022-02-11] MEDS: QUEtiapine FUMARATE 200 MG TABLET PO SCH (21:50)
[2022-02-11] MEDS: MELATONIN 5 MG TABLETS PO SCH (21:51)
[2022-02-11] MEDS: THIAMINE HCL 100 MG TABLET (FP) PO SCH (21:51)
[2022-02-12] MEDS: QUEtiapine FUMARATE 100 MG TABLET (FP) PO SCH (10:02)
[2022-02-12] MEDS: PRENATAL VITAMINS W/ FOLIC ACID TABLET (FP) PO SCH (10:02)
[2022-02-12] MEDS: amLODIPine BESYLATE 10 MG TABLET (FP) PO SCH (10:02)
[2022-02-12] MEDS: QUEtiapine FUMARATE 200 MG TABLET PO SCH (21:03)
[2022-02-12] MEDS: THIAMINE HCL 100 MG TABLET (FP) PO SCH (21:03)
[2022-02-12] MEDS: MELATONIN 5 MG TABLETS PO SCH (21:04)
[2022-02-13] MEDS: PRENATAL VITAMINS W/ FOLIC ACID TABLET (FP) PO SCH (09:57)
[2022-02-13] MEDS: amLODIPine BESYLATE 10 MG TABLET (FP) PO SCH (09:57)
[2022-02-13] MEDS: QUEtiapine FUMARATE 100 MG TABLET (FP) PO SCH (09:57)
[2022-02-13] MEDS: THIAMINE HCL 100 MG TABLET (FP) PO SCH (21:14)
[2022-02-13] MEDS: QUEtiapine FUMARATE 200 MG TABLET PO SCH (21:14)
[2022-02-13] MEDS: MELATONIN 5 MG TABLETS PO SCH (21:14)
[2022-02-14 06:42] VITALS: BP 149/79; PULSE 78; TEMP 97.3
== END 2022-02-14 06:47 | disposition home or self-care (01) | DRG 772 ==
LOC: YASAS 11:10 → Y3E 11:21 → UNDODISIN 16:40 → Y3E 02-06 17:03
PROVIDERS: ADMIT Allergy & Immunology; ATTEND Psychiatry & Neurology Pain Medicine
PROC: HZ42ZZZ Group Counseling for Substance Abuse Treatment, Cognitive-Behavioral (ICD-10-PCS; principal; 2022-02-04)
DX: F10.20 Alcohol dependence, uncomplicated (principal); F14.20 Cocaine dependence, uncomplicated; F12.20 Cannabis dependence, uncomplicated; F17.210 Nicotine dependence, cigarettes, uncomplicated; L85.3 Xerosis cutis; E66.9 Obesity, unspecified; Z68.35 Body mass index [BMI] 35.0-35.9, adult; Z91.018 Allergy to other foods; Z91.013 Allergy to seafood
CPT/HCPCS: 82962; 83036

== ENCOUNTER 2023-02-13 12:16 | Inpatient (IN) | payer OTHER ==
[2023-02-13 12:37] VITALS: BMI 35.7
[2023-02-13] MEDS ORDERED: ACETAMINOPHEN 325 MG TABLET (FP) PO PRN (12:48)
[2023-02-13] MEDS ORDERED: MAG HYDROX/AL HYDROX/SIMETH 30 ML UNIT-DOSE CUP PO PRN (12:48)
[2023-02-13] MEDS ORDERED: guaiFENesin 600 MG TABLET.ER (FP) PO PRN (12:48)
[2023-02-13] MEDS ORDERED: IBUPROFEN 600 MG TABLET (FP) PO PRN (12:48)
[2023-02-13] MEDS ORDERED: AMMONIUM LACTATE 12% LOTION 225 GM BOTTLE TP PRN (12:48)
[2023-02-13] MEDS ORDERED: BENZOCAINE/MENTHOL (CHLORASEPTIC ) LOZENGE MM PRN (12:48)
[2023-02-13] MEDS ORDERED: NALOXONE HCL 0.4 MG/ML VIAL IM PRN (12:48)
[2023-02-13] MEDS ORDERED: BENZONATATE 200 MG CAPSULE PO PRN (12:48)
[2023-02-13] MEDS ORDERED: NALOXONE HCL (KLOXXADO) 8 MG SPRAY NS PRN (12:48)
[2023-02-13] MEDS ORDERED: MAGNESIUM HYDROX 2400MG/30ML ORAL SUSPENSION 30 ML CUP PO PRN (12:48)
[2023-02-13] MEDS ORDERED: LOPERAMIDE HCL 2 MG CAPSULE PO PRN (12:48)
[2023-02-13] MEDS ORDERED: IBUPROFEN 400 MG TABLET (FP) PO PRN (12:48)
[2023-02-13] MEDS ORDERED: POLYETHYLENE GLYCOL (HEALTHYLAX) 3350 17 GM PACKET PO PRN (12:48)
[2023-02-13] MEDS ORDERED: COLLOIDAL OATMEAL 1 BAR EACH TP PRN (12:48)
[2023-02-13] MEDS ORDERED: amLODIPine BESYLATE 5 MG TABLET (FP) ONE (13:27)
[2023-02-13] MEDS ORDERED: PRENATAL VITAMINS W/ FOLIC ACID TABLET (FP) PO ONE (13:27)
[2023-02-13] MEDS: PRENATAL VITAMINS W/ FOLIC ACID TABLET (FP) PO SCH (13:28)
[2023-02-13] MEDS: amLODIPine BESYLATE 10 MG TABLET (FP) PO SCH (13:28)
[2023-02-13] MEDS ORDERED: TUBERCULIN PPD 5 TU/0.1ML VIAL ID ONE (14:23)
[2023-02-13 15:56] LABS: HEMATOCRIT 40.7 % (35.4-49); MCHC 34.4 g/dl (32.0-35.9); MEAN CELL VOLUME 81.5 fl (80-96); MEAN PLT VOLUME 7.9 fl (7.5-11.1); PLATELET COUNT 300 10^3/uL (134-434); RBC 4.99 M/mm3 (4.00-5.60); RDW 17.6 % (11.9-15.9); WHITE BLOOD COUNT 5.8 K/mm3 (4.0-10.0)
[2023-02-13 17:04] LABS: SYPHILIS W/ RPR CONF NON-REACTIVE (NONREACTIVE)
[2023-02-13 17:20] LABS: POTASSIUM 3.3 mmol/L (3.5-5.1)
[2023-02-13 17:23] LABS: CALCIUM 8.9 mg/dL (8.5-10.1)
[2023-02-13 17:24] LABS: ALBUMIN 3.4 g/dl (3.4-5.0); BLOOD UREA NITROGEN 17.6 mg/dL (7-18)
[2023-02-13 17:27] LABS: CREATININE 1.4 mg/dL (0.55-1.3)
[2023-02-13 17:29] LABS: BILIRUBIN,TOTAL 0.5 mg/dL (0.2-1); TOT PROT 6.7 g/dl (6.4-8.2)
[2023-02-13] MEDS: QUEtiapine FUMARATE 200 MG TABLET PO SCH (21:28)
[2023-02-13] MEDS: MELATONIN 5 MG TABLETS PO SCH (21:29)
[2023-02-13] MEDS: THIAMINE HCL 100 MG TABLET (FP) PO SCH (21:29)
[2023-02-14] MEDS ORDERED: POTASSIUM CHLORIDE ORAL LIQUID 20 MEQ/15 ML PO ONE (10:00)
[2023-02-14] MEDS: amLODIPine BESYLATE 10 MG TABLET (FP) PO SCH (10:02)
[2023-02-14] MEDS: PRENATAL VITAMINS W/ FOLIC ACID TABLET (FP) PO SCH (10:02)
[2023-02-14 14:00] LABS: URINE APPEARANCE CLEAR; URINE BILIRUBIN NEGATIVE (NEGATIVE); URINE COLOR YELLOW; URINE GLUCOSE (UA) NEGATIVE (NEGATIVE); URINE KETONE NEGATIVE (NEGATIVE); URINE LEUK ESTERASE NEGATIVE (NEGATIVE); URINE NITRITE NEGATIVE (NEGATIVE); URINE PROTEIN NEGATIVE (NEGATIVE); URINE UROBILINOGEN 0.2 mg/dL (0.2-1.0)
[2023-02-14] MEDS: MELATONIN 5 MG TABLETS PO SCH (22:00)
[2023-02-14] MEDS: QUEtiapine FUMARATE 200 MG TABLET PO SCH (22:00)
[2023-02-14] MEDS: THIAMINE HCL 100 MG TABLET (FP) PO SCH (22:01)
[2023-02-15] MEDS: PRENATAL VITAMINS W/ FOLIC ACID TABLET (FP) PO SCH (10:17)
[2023-02-15] MEDS: amLODIPine BESYLATE 10 MG TABLET (FP) PO SCH (10:17)
[2023-02-15] MEDS: QUEtiapine FUMARATE 200 MG TABLET PO SCH (21:22)
[2023-02-15] MEDS: MELATONIN 5 MG TABLETS PO SCH (21:22)
[2023-02-15] MEDS: THIAMINE HCL 100 MG TABLET (FP) PO SCH (21:36)
[2023-02-16] MEDS: amLODIPine BESYLATE 10 MG TABLET (FP) PO SCH (09:47)
[2023-02-16] MEDS: PRENATAL VITAMINS W/ FOLIC ACID TABLET (FP) PO SCH (09:47)
[2023-02-16] MEDS: THIAMINE HCL 100 MG TABLET (FP) PO SCH (21:10)
[2023-02-16] MEDS: QUEtiapine FUMARATE 200 MG TABLET PO SCH (21:10)
[2023-02-16] MEDS: MELATONIN 5 MG TABLETS PO SCH (21:11)
[2023-02-17] MEDS: amLODIPine BESYLATE 10 MG TABLET (FP) PO SCH (09:43)
[2023-02-17] MEDS: PRENATAL VITAMINS W/ FOLIC ACID TABLET (FP) PO SCH (09:43)
[2023-02-17] MEDS: QUEtiapine FUMARATE 200 MG TABLET PO SCH (21:15)
[2023-02-17] MEDS: THIAMINE HCL 100 MG TABLET (FP) PO SCH (21:15)
[2023-02-17] MEDS: MELATONIN 5 MG TABLETS PO SCH (21:16)
[2023-02-18] MEDS: amLODIPine BESYLATE 10 MG TABLET (FP) PO SCH (09:55)
[2023-02-18] MEDS: PRENATAL VITAMINS W/ FOLIC ACID TABLET (FP) PO SCH (09:55)
[2023-02-18] MEDS: QUEtiapine FUMARATE 200 MG TABLET PO SCH (21:03)
[2023-02-18] MEDS: THIAMINE HCL 100 MG TABLET (FP) PO SCH (21:03)
[2023-02-18] MEDS: MELATONIN 5 MG TABLETS PO SCH (21:04)
[2023-02-19] MEDS: PRENATAL VITAMINS W/ FOLIC ACID TABLET (FP) PO SCH (09:52)
[2023-02-19] MEDS: amLODIPine BESYLATE 10 MG TABLET (FP) PO SCH (09:52)
[2023-02-19 16:39] LABS: HIV INTERPRETATION NEGATIVE (NEGATIVE)
[2023-02-19] MEDS: MELATONIN 5 MG TABLETS PO SCH (21:08)
[2023-02-19] MEDS: QUEtiapine FUMARATE 200 MG TABLET PO SCH (21:08)
[2023-02-19] MEDS: THIAMINE HCL 100 MG TABLET (FP) PO SCH (21:08)
[2023-02-20] MEDS: PRENATAL VITAMINS W/ FOLIC ACID TABLET (FP) PO SCH (09:46)
[2023-02-20] MEDS: amLODIPine BESYLATE 10 MG TABLET (FP) PO SCH (09:46)
[2023-02-20] MEDS: MELATONIN 5 MG TABLETS PO SCH (21:10)
[2023-02-20] MEDS: THIAMINE HCL 100 MG TABLET (FP) PO SCH (21:10)
[2023-02-20] MEDS: QUEtiapine FUMARATE 200 MG TABLET PO SCH (21:10)
[2023-02-21] MEDS: PRENATAL VITAMINS W/ FOLIC ACID TABLET (FP) PO SCH (09:36)
[2023-02-21] MEDS: amLODIPine BESYLATE 10 MG TABLET (FP) PO SCH (09:37)
[2023-02-21] MEDS: QUEtiapine FUMARATE 200 MG TABLET PO SCH (20:59)
[2023-02-21] MEDS: THIAMINE HCL 100 MG TABLET (FP) PO SCH (20:59)
[2023-02-21] MEDS: MELATONIN 5 MG TABLETS PO SCH (21:23)
[2023-02-22] MEDS: PRENATAL VITAMINS W/ FOLIC ACID TABLET (FP) PO SCH (09:55)
[2023-02-22] MEDS: amLODIPine BESYLATE 10 MG TABLET (FP) PO SCH (09:56)
[2023-02-22] MEDS ORDERED: cloNIDine HCL 0.1 MG TABLET PO ONE (20:35)
[2023-02-22] MEDS: hydrOXYzine PAMOATE 25 MG CAPSULE (FP) PO PRN (20:47)
[2023-02-22] MEDS: MELATONIN 5 MG TABLETS PO SCH (21:20)
[2023-02-22] MEDS: QUEtiapine FUMARATE 200 MG TABLET PO SCH (21:20)
[2023-02-22] MEDS: THIAMINE HCL 100 MG TABLET (FP) PO SCH (21:21)
[2023-02-23] MEDS: PRENATAL VITAMINS W/ FOLIC ACID TABLET (FP) PO SCH (09:36)
[2023-02-23] MEDS: amLODIPine BESYLATE 10 MG TABLET (FP) PO SCH (09:37)
[2023-02-23] MEDS: hydrOXYzine PAMOATE 25 MG CAPSULE (FP) PO PRN (19:36)
[2023-02-23] MEDS: THIAMINE HCL 100 MG TABLET (FP) PO SCH (21:06)
[2023-02-23] MEDS: MELATONIN 5 MG TABLETS PO SCH (21:06)
[2023-02-23] MEDS: QUEtiapine FUMARATE 200 MG TABLET PO SCH (21:06)
[2023-02-24] MEDS: hydrOXYzine PAMOATE 25 MG CAPSULE (FP) PO PRN (09:51)
[2023-02-24] MEDS: PRENATAL VITAMINS W/ FOLIC ACID TABLET (FP) PO SCH (09:51)
[2023-02-24] MEDS: amLODIPine BESYLATE 10 MG TABLET (FP) PO SCH (09:51)
[2023-02-24] MEDS: QUEtiapine FUMARATE 200 MG TABLET PO SCH (21:10)
[2023-02-24] MEDS: THIAMINE HCL 100 MG TABLET (FP) PO SCH (21:11)
[2023-02-24] MEDS: MELATONIN 5 MG TABLETS PO SCH (21:11)
[2023-02-25] MEDS: amLODIPine BESYLATE 10 MG TABLET (FP) PO SCH (09:54)
[2023-02-25] MEDS: PRENATAL VITAMINS W/ FOLIC ACID TABLET (FP) PO SCH (09:54)
[2023-02-25] MEDS: QUEtiapine FUMARATE 200 MG TABLET PO SCH (21:02)
[2023-02-25] MEDS: THIAMINE HCL 100 MG TABLET (FP) PO SCH (21:02)
[2023-02-25] MEDS: MELATONIN 5 MG TABLETS PO SCH (21:03)
[2023-02-26] MEDS: PRENATAL VITAMINS W/ FOLIC ACID TABLET (FP) PO SCH (09:35)
[2023-02-26] MEDS: amLODIPine BESYLATE 10 MG TABLET (FP) PO SCH (09:36)
[2023-02-26] MEDS: THIAMINE HCL 100 MG TABLET (FP) PO SCH (21:13)
[2023-02-26] MEDS: QUEtiapine FUMARATE 200 MG TABLET PO SCH (21:13)
[2023-02-26] MEDS: MELATONIN 5 MG TABLETS PO SCH (21:14)
[2023-02-27] MEDS: amLODIPine BESYLATE 10 MG TABLET (FP) PO SCH (09:05)
[2023-02-27] MEDS: PRENATAL VITAMINS W/ FOLIC ACID TABLET (FP) PO SCH (09:06)
[2023-02-27 09:18] VITALS: BP 135/71; PULSE 72; RESP 16; TEMP 97.9
== END 2023-02-27 09:14 | disposition home or self-care (01) | DRG 772 ==
LOC: YASAS 12:16 → Y6N 13:13 → Y5N 13:14
PROVIDERS: ADMIT Allergy & Immunology; ATTEND Psychiatry & Neurology Pain Medicine
PROC: HZ42ZZZ Group Counseling for Substance Abuse Treatment, Cognitive-Behavioral (ICD-10-PCS; principal; 2023-02-13)
DX: F10.20 Alcohol dependence, uncomplicated (principal); F14.20 Cocaine dependence, uncomplicated; F12.20 Cannabis dependence, uncomplicated; F19.282 Other psychoactive substance dependence with psychoactive substance-induced sleep disorder; F31.9 Bipolar disorder, unspecified; F41.9 Anxiety disorder, unspecified; E87.5 Hyperkalemia; I10 Essential (primary) hypertension; R60.0 Localized edema; E66.9 Obesity, unspecified; Z68.35 Body mass index [BMI] 35.0-35.9, adult; Z87.891 Personal history of nicotine dependence; Z91.018 Allergy to other foods; Z91.013 Allergy to seafood
CPT/HCPCS: 36415; 80053; 81003; 82962; 84132; 85027; 86780; 86803; 87389; 87635